=== PATIENT | female | born 1965 | race Caucasian/White ===

== ENCOUNTER → 2023-04-01 13:27 | Outpatient (REF) | payer MEDICARE, OTHER, SELFPAY | LOC: WOUND 13:27 | PROVIDERS: ATTENDING PHYSICIAN Surgery; REFERRING PHYSICIAN Internal Medicine Geriatric Medicine | DX: L97.114 Non-pressure chronic ulcer of right thigh with necrosis of bone (principal); M86.351 Chronic multifocal osteomyelitis, right femur | CPT/HCPCS: 99213 ==

== ENCOUNTER 2023-12-16 14:08 | Inpatient (IN) | payer MEDICARE, OTHER, SELFPAY ==
[2023-12-16] VITALS (11 sets, daily range): BP systolic 91–129; BP diastolic 60–71; BMI 19.2
--- NOTE | 2023-12-16 09:29 | ED.GENMED ---
History of Present Illness
<Ryanne Velasquez PA-C - Last Filed: 12/16/23 17:13>
General
Chief Complaint: Weakness
Source: patient
Exam Limitations: none
Time Seen by Provider: 12/16/23 09:28
Nursing documentation reviewed up to this point in time: agreed with
History of Present Illness
History of Present Illness:
This is a 58 y/o female with a PMH of L hemisphere aneurysm with right hemiparesis, epilepsey, chronic tobacco use, hypothyroidism presenting to the emergency department today with concerns of generalized weakness and low pulse ox. Patient resides
at [facility] for traumatic brain injury. EMS reports that facility sent her to the emergency department because her pulse ox was 90% and she appeared weaker. Patient herself states that she is here because staff sent her
here and that she personally does not feel sick. She denies shortness of breath, chest pain, dizziness, lightheadedness, fevers, chills, abdominal pain, nausea, headaches, vomiting. Apparently, patient was recently treated for a respiratory
infection but there is no evidence of this on her paper records. Patient states that she has a chronic cough because of tobacco use. Patient denies a change in color/volume of sputum.
Past History
<Ryanne Velasquez PA-C - Last Filed: 12/16/23 17:13>
Past History
ED Past Medical History: CAD, HTN, Seizures, Hypothyroidism, Psychiatric and Other (TBI)
Social History
Tobacco: Non-smoker
Alcohol: None
Personal: Single
Living: [facility]
Family History
Family History: Unable to obtain
Review of Systems
<PALOMO Torres Last Filed: 12/16/23 17:13>
Review of Systems
All Other Systems: ROS reviewed and negative except as documented in HPI and ROS
Phy Exam
<PALOMO Torres Last Filed: 12/16/23 17:13>
Physical Exam
Physical Exam:
General: Patient is well appearing and in no acute distress; non-toxic
Skin: Warm and dry, no rashes or lesions
Head: Normocephalic, atraumatic
Eyes: Sclera non-icteric. EOMs intact. PERRLA.
Cardiac: Regular rate and rhythm, no murmurs
Peripheral Vascular: No lower extremity swelling or edema
Pulm: Normal respiratory effort, scattered rhonchi heard on exam
Abdomen: No abdominal tenderness to palpation
Neuro: CN II-XII intact, chronic right sided weakness
Psychiatric: Appropriate mood and affect, insight somewhat limited
Course
<Ryanne Velasquez PA-C - Last Filed: 12/16/23 17:13>
Orders/Labs/Results
Orders:
Orders
12/16/23 09:48
CR Chest - 2 Views Urgent
Comment:
Reason For Exam: shortness of breath
12/16/23 09:51
Electrocardiogram (*1) Urgent
Reason for Study: Shortness of Breath
EKG- Treatment ONCE
12/16/23 Lunch
Regular
At Your Request: Full Participation
Does patient need a safe tray?: No
12/16/23 10:14
COVID-19 Antigen Urgent
Source: Nasal Swab
Urinalysis Reflex To Culture Urgent
Date Specimen was Collected: 12/16/23
Time Specimen was Collected: 09:57
12/16/23 10:20
0.9% Sodium Chloride 500 ml [Nss] 500 ml IV BOLUS
12/16/23 11:00
Complete Blood Count/With Diff Urgent
Comprehensive Metabolic Panel Urgent
Troponin I Urgent
12/16/23 12:29
0.9% Sodium Chloride 1000 ml [Nss] 1,000 ml IV BOLUS
12/16/23 12:32
Piperacillin/Tazo 4.5 Gram [Zosyn] 4.5 gram in 100 ml IV NOW
Vancomycin 1 Gram/200 ml [Vancocin] 1 gram in 200 ml IV NOW
12/16/23 13:00
Nicotine [Nicoderm Transdermal] 7 mg TRANSDERM DAILY
12/16/23 13:46
Admit/Transfer Patient As Directed
Co-Sign Provider:
Level of Care: Inpatient admission
Assign to:: Medical/Surgical
Physician / Group: Yee Portillo anaists
Diagnosis: Pneumonia, early sepsis
Reason for Hospitalization: Pneumonia, early sepsis
Expected length of stay greater than two midnights?: Yes
ELOS- Estimated Length of Stay in days: 3
I certify the patient meets the requirements for IP care: Yes
12/16/23 13:49
Code Status As Directed
Resuscitation Status: Full Code
12/16/23 14:50
Acetaminophen [Tylenol] 650 mg PO Q4HPRN PRN
Bisacodyl [Dulcolax] 10 mg RECTAL [id number] PRN
Diphenhydramine [Benadryl] 50 mg PO HSPRN PRN
Docusate W/Senna [Senokot-S] 1 tablet PO BIDPRN PRN
Ipratropium/Albuterol Sulfate [Duoneb] 3 ml INH R Q4HPRN PRN
Ondansetron Injectable [Zofran] 4 mg IV Q6HPRN PRN
Polyethylene Glycol Powder [Miralax] 17 grams PO DAILYPRN PRN
12/16/23 14:50
Respiratory Culture/Gram Stain Routine
RAYMOND Source: Sputum
Specimen Description:
Activity As Directed
Activity Level: As Tolerated
Vital Signs As Directed
Frequency: Per unit guidelines
Acapella [Rx Pep / Acapela] [RESP] Routine
Chest PT [Rx Chest Pt] [RESP] Routine
Rx Incentive Spirometry [RESP] Routine
Frequency: q1h while awake
Ot Eval And Treat Routine
Pt Eval And Treat Routine
Activity Level: As Tolerated
Speech Therapy Eval & Treat Routine
DX Deep Vein Thrombosis Video Routine
12/16/23 16:00
Lorazepam [Ativan] 0.5 mg PO TID
Nystatin Cream [Mycostatin Cream] 1 applic TOPICAL TID
12/16/23 16:38
Blood Culture Routine
RAYMOND Source: Blood/Venous
Specimen Description:
Blood Culture Routine
RAYMOND Source: Blood/Venous
Specimen Description:
Comment: 30 mins after first set
12/16/23 17:00
Lamotrigine [Lamictal] 300 mg PO BID@0800,1700
12/16/23 18:00
Cefepime HCl [Maxipime] 1,000 mg IV Q8H
Enoxaparin Sodium [Lovenox] 40 mg SC QPM
12/16/23 20:00
Bacitracin/Polymyxin B [Polysporin Ointment] 1 applic TOPICAL BID
Baclofen [Lioresal] 5 mg PO BID
Famotidine [Pepcid] 20 mg PO BID
Guaifenesin [Mucinex] 1,200 mg PO Q12
Lacosamide [Vimpat] 200 mg PO BID
Phenytoin [Dilantin] 100 mg PO BID
Phenytoin [Dilantin] 50 mg PO BID
Zinc Oxide 20% [Zinc Oxide Ointment] 1 applic TOPICAL BID
12/16/23 22:00
Aripiprazole [Abilify] 7.5 mg PO HS
Gabapentin [Neurontin] 900 mg PO HS
Mirtazapine [Remeron] 15 mg PO HS
Rosuvastatin Calcium [Crestor] 20 mg PO HS
Sennosides [Senokot] 8.6 mg PO HS
Tramadol HCl [Ultram] 50 mg PO HS
12/17/23 06:00
Basic Metabolic Panel IN AM
Complete Blood Count/With Diff IN AM
Levothyroxine [Synthroid] 25 mcg PO DAILY@0600
12/17/23 08:00
Ascorbic Acid [Vitamin C] 500 mg PO DAILY
Aspirin Chewable [Low Strength Aspirin] 81 mg PO DAILY
Cyanocobalamin [Vitamin B-12] 1,000 mcg PO DAILY
FOLic ACID [Folvite] 1 mg PO DAILY
Gabapentin [Neurontin] 600 mg PO DAILY
Abnormal Lab Results
12/16/23
11:00
WBC 13.5 H 10^3/uL
(4.8-10.8)
Abs Immat Gran (auto) 0.1 H 10^3/uL
(0-0.05)
Absolute Neuts (auto) 11.6 H 10^3/uL
(1.4-6.5)
Neutrophils % 86.1 H %
(42.2-75.2)
Lymphocytes % 8.5 L %
(20.5-51.1)
Chloride 109 H mmol/L
(98-107)
Creatinine 0.5 L mg/dL
(0.6-1.0)
Glucose 128 H mg/dl
(70-99)
AST 12 L U/L
(14-36)
12/16/23 11:00
12/16/23 11:00
Vital Signs
Initial and Last Documented VS:
Initial Vital Signs
BP
91/64
12/16/23 09:26
Last Documented Vital Signs
Temp Pulse Resp BP Pulse Ox
98.3 F 73 17 112/70 97
12/16/23 15:30 12/16/23 15:30 12/16/23 15:30 12/16/23 15:30 12/16/23 15:30
<Blank Sinclair MD - Last Filed: 12/16/23 10:51>
Orders/Labs/Results
Orders:
Orders
12/16/23 09:48
CR Chest - 2 Views Urgent
Comment:
Reason For Exam: shortness of breath
12/16/23 09:51
Electrocardiogram (*1) Urgent
Reason for Study: Shortness of Breath
EKG- Treatment ONCE
12/16/23 Lunch
Regular
At Your Request: Full Participation
Does patient need a safe tray?: No
12/16/23 10:14
COVID-19 Antigen Urgent
Source: Nasal Swab
Urinalysis Reflex To Culture Urgent
Date Specimen was Collected: 12/16/23
Time Specimen was Collected: 09:57
12/16/23 10:20
0.9% Sodium Chloride 500 ml [Nss] 500 ml IV BOLUS
12/16/23 11:00
Complete Blood Count/With Diff Urgent
Comprehensive Metabolic Panel Urgent
Troponin I Urgent
12/16/23 12:29
0.9% Sodium Chloride 1000 ml [Nss] 1,000 ml IV BOLUS
12/16/23 12:32
Piperacillin/Tazo 4.5 Gram [Zosyn] 4.5 gram in 100 ml IV NOW
Vancomycin 1 Gram/200 ml [Vancocin] 1 gram in 200 ml IV NOW
12/16/23 13:00
Nicotine [Nicoderm Transdermal] 7 mg TRANSDERM DAILY
12/16/23 13:46
Admit/Transfer Patient As Directed
Co-Sign Provider:
Level of Care: Inpatient admission
Assign to:: Medical/Surgical
Physician / Group: Yee Portillo - hospitalists
Diagnosis: Pneumonia, early sepsis
Reason for Hospitalization: Pneumonia, early sepsis
Expected length of stay greater than two midnights?: Yes
ELOS- Estimated Length of Stay in days: 3
I certify the patient meets the requirements for IP care: Yes
12/16/23 13:49
Code Status As Directed
Resuscitation Status: Full Code
12/16/23 14:50
Acetaminophen [Tylenol] 650 mg PO Q4HPRN PRN
Bisacodyl [Dulcolax] 10 mg RECTAL [id number] PRN
Diphenhydramine [Benadryl] 50 mg PO HSPRN PRN
Docusate W/Senna [Senokot-S] 1 tablet PO BIDPRN PRN
Ipratropium/Albuterol Sulfate [Duoneb] 3 ml INH R Q4HPRN PRN
Ondansetron Injectable [Zofran] 4 mg IV Q6HPRN PRN
Polyethylene Glycol Powder [Miralax] 17 grams PO DAILYPRN PRN
12/16/23 14:50
Respiratory Culture/Gram Stain Routine
RAYMOND Source: Sputum
Specimen Description:
Activity As Directed
Activity Level: As Tolerated
Vital Signs As Directed
Frequency: Per unit guidelines
Acapella [Rx Pep / Acapela] [RESP] Routine
Chest PT [Rx Chest Pt] [RESP] Routine
Rx Incentive Spirometry [RESP] Routine
Frequency: q1h while awake
Ot Eval And Treat Routine
Pt Eval And Treat Routine
Activity Level: As Tolerated
Speech Therapy Eval & Treat Routine
DX Deep Vein Thrombosis Video Routine
12/16/23 16:00
Lorazepam [Ativan] 0.5 mg PO TID
Nystatin Cream [Mycostatin Cream] 1 applic TOPICAL TID
12/16/23 16:38
Blood Culture Routine
RAYMOND Source: Blood/Venous
Specimen Description:
Blood Culture Routine
RAYMOND Source: Blood/Venous
Specimen Description:
Comment: 30 mins after first set
12/16/23 17:00
Lamotrigine [Lamictal] 300 mg PO BID@0800,1700
12/16/23 18:00
Cefepime HCl [Maxipime] 1,000 mg IV Q8H
Enoxaparin Sodium [Lovenox] 40 mg SC QPM
12/16/23 20:00
Bacitracin/Polymyxin B [Polysporin Ointment] 1 applic TOPICAL BID
Baclofen [Lioresal] 5 mg PO BID
Famotidine [Pepcid] 20 mg PO BID
Guaifenesin [Mucinex] 1,200 mg PO Q12
Lacosamide [Vimpat] 200 mg PO BID
Phenytoin [Dilantin] 100 mg PO BID
Phenytoin [Dilantin] 50 mg PO BID
Zinc Oxide 20% [Zinc Oxide Ointment] 1 applic TOPICAL BID
12/16/23 22:00
Aripiprazole [Abilify] 7.5 mg PO HS
Gabapentin [Neurontin] 900 mg PO HS
Mirtazapine [Remeron] 15 mg PO HS
Rosuvastatin Calcium [Crestor] 20 mg PO HS
Sennosides [Senokot] 8.6 mg PO HS
Tramadol HCl [Ultram] 50 mg PO HS
12/17/23 06:00
Basic Metabolic Panel IN AM
Complete Blood Count/With Diff IN AM
Levothyroxine [Synthroid] 25 mcg PO DAILY@0600
12/17/23 08:00
Ascorbic Acid [Vitamin C] 500 mg PO DAILY
Aspirin Chewable [Low Strength Aspirin] 81 mg PO DAILY
Cyanocobalamin [Vitamin B-12] 1,000 mcg PO DAILY
FOLic ACID [Folvite] 1 mg PO DAILY
Gabapentin [Neurontin] 600 mg PO DAILY
Abnormal Lab Results
12/16/23
11:00
WBC 13.5 H 10^3/uL
(4.8-10.8)
Abs Immat Gran (auto) 0.1 H 10^3/uL
(0-0.05)
Absolute Neuts (auto) 11.6 H 10^3/uL
(1.4-6.5)
Neutrophils % 86.1 H %
(42.2-75.2)
Lymphocytes % 8.5 L %
(20.5-51.1)
Chloride 109 H mmol/L
(98-107)
Creatinine 0.5 L mg/dL
(0.6-1.0)
Glucose 128 H mg/dl
(70-99)
AST 12 L U/L
(14-36)
12/16/23 11:00
12/16/23 11:00
Vital Signs
Initial and Last Documented VS:
Initial Vital Signs
BP
91/64
12/16/23 09:26
Last Documented Vital Signs
Temp Pulse Resp BP Pulse Ox
98.3 F 73 17 112/70 97
12/16/23 15:30 12/16/23 15:30 12/16/23 15:30 12/16/23 15:30 12/16/23 15:30
Billlt;Ryanne Velasquez PA-C - Last Filed: 12/16/23 17:13>
MDM/Problems Addressed
Differential Diagnosis Includes:
ddx include pneumonia, COVID-19 infection, urinary tract infection, ACS
MDM/Problems Addressed:
Weakness, low pulse ox:
This is a 58 y/o female with a PMH of L hemisphere aneurysm with right hemiparesis, epilepsey, chronic tobacco use, hypothyroidism presenting to the emergency department today with concerns of generalized weakness and low pulse ox. Patient resides
at [facility] for traumatic brain injury. EMS reports that facility sent her to the emergency department because her pulse ox was 90% and she appeared weaker. Patient herself denies any symptoms, has no complaints. On exam
she appears well but fatigued. VSS, does have scattered rhonchi. Her chest x-ray demonstrates a posterior pneumonia. Patient also has soft blood pressure, elevated white blood cell count. Considering these factors and considering patient comes
from a long-term care facility, will admit for IV antibiotics for pneumonia. Patient supposedly warms from her facility it says that she is a [facility], however when speaking to family, they state that this is a mistake.
Chronic conditions affecting care:
right hemiparesis, epilepsey, chronic tobacco use, hypothyroidism
Acute Exacerbation and/or Progression of Chronic Illness:
right hemiparesis, epilepsey, chronic tobacco use, hypothyroidism
<Ryanne Velasquez PA-C - Last Filed: 12/16/23 17:13>
*Pulse Oximetry
Patient hypoxic: no
*EKG
Interpreted by ED Provider?: Yes
EKG Intrepretation Date: 12/16/23
Interpretation: normal
Comparison EKG: changes noted
Heart Rate: 85
Rate: normal
Rhythm: sinus
[place]: normal axis
Interval: normal interval and normal QT interval
QRS Pattern: normal QRS
Ischemia: non-specific ST changes
*Extruder Operator Interpretation
Rate: normal
Interpretation: normal
Heart Rate: 80
Rhythm: sinus
*Critical Care Note
Total Time (30-74mins, 75-104mins- exclusive of procedures): Not Applicable
Data Reviewed
Review of Other/Old Records Reveals: Records (reviewed ER physician documentation from 01/22/23, 01/06/23) and Discharge Summary (no discharge summaries in [facility] to review)
Source: patient and records
<Ryanne Velasquez PA-C - Last Filed: 12/16/23 17:13>
Patient Management
Escalation/DeEscalation of care consider admission/obs:
Admission indicated. Case reviewed with Dr. Sinclair.
<Ryanne Velasquez PA-C - Last Filed: 12/16/23 17:13>
Update Note
Update Note:
10:00 am-- Attempted to call patient's facility multiple times with no response, left messages
ED Attending Note
<Ryanne Velasquez PA-C - Last Filed: 12/16/23 17:13>
-
Portions of this chart may have been created with voice recognition software.� Occasional wrong word or��sound alike� substitutions may have occurred due to the inherent limitations of voice recognition software.
<Blank Sinclair MD - Last Filed: 12/16/23 10:51>
ED Attending Note
Patient seen and examined by attending physician: Yes
I performed the substantive portion of visit, reviewed & personally made and approve the management plan that is documented in note by myself or JULIAN.: Yes
ED Attending Note:
Patient appears awake, alert and nontoxic. Lungs sound clear. Heart sounds regular. Awaiting lab work
Discharge Plan
Departure
Patient Disposition: Admit
Date of Disposition: 12/16/23
Time of Disposition: 12:35
Admit to: Med/Surg
Presentation/result/management discussed w/ accepting MD/DO: Hospitalist
Patient with high blood pressure during this ER visit?: No
Condition: Fair
Discharge Problem:
Left lower lobe pneumonia
Interventions
Interventions:
*Risk Screen - Suicide Last Done: 12/16/23 15:32
*Neglect/Abuse Screening Last Done: 12/16/23 09:36
ED- Fall Risk Assessment Last Done: 12/16/23 14:05
*ED COVID-19 Vaccine History Last Done: 12/16/23 15:32
*Nursing Disposition Last Done: 12/16/23 14:44
ED- Cardiac Assessment Last Done: 12/16/23 09:41
ED- Neurological Assessment Last Done: 12/16/23 09:41
ED- Pulmonary Assessment Last Done: 12/16/23 09:42
Discharge Date and Time
Discharge Date/Time: 12/16/23 14:44
[2023-12-16 10:23] LABS: Urine Albumin Trace (Neg - Trace); Urine Bilirubin Negative (Negative); Urine Character Clear (Clear); Urine Color Yellow; Urine Glucose Negative (Negative); Urine Ketone Negative (Negative); Urine Leukocyte Negative (Negative); Urine Nitrite Negative (Negative); Urine Occult Blood Negative (Negative); Urine Specific Gravity 1.015 (<1.030); Urine Urobilinogen Negative (Neg - 1+)
[2023-12-16 10:39] LABS: COVID-19 Antigen Negative (Negative)
[2023-12-16] MEDS: NSS 500 IV (11:03)
[2023-12-16 11:11] LABS: % Basophils 0.2 % (0-2); % Eosinophils 0.3 % (0-6); % Immature Granulocytes 0.4 % (0-0.5); % Lymphocytes 8.5 % (20.5-51.1); % Monocytes 4.5 % (1.7-9.3); % Neutrophils 86.1 % (42.2-75.2); Absolute Immature Granulocytes 0.1 10^3/uL (0-0.05); Absolute Lymphocytes 1.2 10^3/uL (1.2-3.4); Absolute Monocytes 0.6 10^3/uL (0.1-0.6); Absolute Neutrophils 11.6 10^3/uL (1.4-6.5); Hematocrit 37.7 % (37.0-47.0); Hemoglobin 12.9 g/dL (12.0-16.0); Mean Corp Hgb Conc. 34.2 g/dL (33.0-37.0); Mean Corpuscular Hgb 30.6 pg (27.0-31.0); Mean Corpuscular Volume 89.5 fL (81.0-99.0); Mean Platelet Volume 9.3 fL (7.4-10.4); Nucleated Red Blood Cells % 0 %; Platelet Count 217 10^3/uL (130-400); Red Blood Cell Count 4.21 10^6/uL (4.20-5.40); Red Cell Dist. Width 12.6 % (11.5-14.5); White Blood Cell Count 13.5 10^3/uL (4.8-10.8)
[2023-12-16 11:28] LABS: ALT (SGPT) < 10 U/L (0-35); AST (SGOT) 12 U/L (14-36); Albumin 4.2 g/dl (3.5-5.0); Alkaline Phosphatase 97 U/L (38-126); Blood Urea Nitrogen 10 mg/dl (7-17); Calcium 9.8 mg/dl (8.4-10.2); Carbon Dioxide 28 mmol/L (22-30); Chloride 109 mmol/L (98-107); Estimated Creatinine Clearance 94 ml/min; Glucose 128 mg/dl (70-99); Potassium 3.7 mmol/L (3.5-5.1); Sodium 143 mmol/L (135-145); Total Bilirubin 0.3 mg/dl (0.2-1.3); Total Protein 6.7 g/dl (6.3-8.2); eGFR > 60.00
[2023-12-16 11:39] LABS: Troponin I < 0.012 ng/ml
[2023-12-16] MEDS: ZOSYN 100 IV (13:00)
[2023-12-16] MEDS: NSS 1000 IV (13:01)
[2023-12-16] MEDS: NICODERM TRANSDERMAL 7 MG TRANSDERM (13:12)
--- NOTE | 2023-12-16 13:35 | HPS.HSE ---
Family Physician
-
Family Physician: Fredrick Norman
Chief Complaint
-
weakness
History of Present Illness
58 y/o F hx of TBI, hx of hypothyroidism, seizures, HTN, CAD, L hemisphere aneurysm with right hemiparesis, chronic tobacco abuse who lives at [facility]. She was sent today from facility with concern of generalized
weakness. Also noted to have low pulse ox. They noted cough, congestion breath sounds. No fever/chills, no SOB or chest pain. NO other complaints. Per reports, recently treated for respiratory infection but no records to corroborate.
Medical History
Past Medical History
Past Medical History: Reports Other (hx of TBI, hx of hypothyroidism, seizures, HTN, CAD, L hemisphere aneurysm with right hemiparesis, chronic tobacco abuse)
Past Surgical History: Reports Brain (brain aneurism repairy surgery 1984)
Social History
Tobacco: Non-smoker
Alcohol: None
Drug: None
Personal: Single
Living: [facility]
Family History
Family History: Not pertinent
Allergies / Home Medications
Allergies reflects when Allergies were last updated in [employer].
Home Medications with original date entered in [employer]
Allergy/Medication List:
Allergies
Allergy/AdvReac Type Severity Reaction Status Date / Time
No Known Allergies Allergy Verified 12/13/22 12:05
Home Medications
acetaminophen 325 mg tablet 650 mg PO Q4HPRN PRN pain or fever > 100.5 09/28/12
aspirin 81 mg chewable tablet 81 mg PO DAILY CAD 09/28/12
baclofen 10 mg tablet 5 mg PO BID Spasticity 09/28/12
diphenhydramine HCl 25 mg capsule (Banophen) 2 capsules PO HSPRN PRN anxiety 09/28/12
famotidine 20 mg tablet 20 mg PO BID Gastrointestinal Issue 09/28/12
lamotrigine 150 mg tablet 300 mg PO BID@, Seizures 09/28/12
loperamide 2 mg capsule 2 mg PO Q6HPRN PRN after each loose stool 09/28/12
amoxicillin 875 mg-potassium clavulanate 125 mg tablet 1 tab PO BID Osteomyelitis 12/16/23
aripiprazole 15 mg tablet 7.5 mg PO HS Mood disorder 12/16/23
ascorbic acid (vitamin C) 500 mg tablet 500 mg PO DAILY Supplement 12/16/23
bacitracin 500 unit/gram topical packet 1 applic topical BID to RLE 12/16/23
cyanocobalamin (vitamin B-12) 1,000 mcg tablet 1,000 mcg PO DAILY Supplement 12/16/23
folic acid 1 mg tablet 1 mg PO DAILY Supplement 12/16/23
gabapentin 300 mg capsule 600 mg PO DAILY Neurological Condition 12/16/23
gabapentin 300 mg capsule 900 mg PO HS Neurological Condition 12/16/23
lacosamide 200 mg tablet 200 mg PO BID Seizures 12/16/23
levothyroxine 25 mcg tablet 25 mcg PO DAILY@0600 Thyroid 12/16/23
lorazepam 0.5 mg tablet 0.5 mg PO TID Mental Health/Anxiety 12/16/23
midazolam 5 mg/spray (0.1 mL) nasal spray (Nayzilam) 5 mg intranasal [id number] PRN prolonged seizure 12/16/23
mirtazapine 15 mg tablet 15 mg PO HS Mental Health/Anxiety 12/16/23
nystatin 100,000 unit/gram topical cream 1 applic topical TID to groin rash 12/16/23
ondansetron 4 mg disintegrating tablet 4 mg PO Q4HPRN PRN nausea/vomiting 12/16/23
phenytoin 50 mg chewable tablet 50 mg PO BID Seizures 12/16/23
phenytoin sodium extended 100 mg capsule 100 mg PO BID Seizures 12/16/23
rosuvastatin 20 mg tablet 20 mg PO HS High Cholesterol 12/16/23
sennosides 8.6 mg tablet (senna) 8.6 mg PO HS Constipation 12/16/23
tramadol 50 mg tablet 50 mg PO HS Pain 12/16/23
zinc oxide 20 % topical ointment 1 applic topical BID to jes wound 12/16/23
ziprasidone mesylate 20 mg IM [id number] PRN agitation 12/16/23
Review of Systems
-
A 12 point ROS was completed and negative except as noted: Yes
Physical Exam
Vital Signs
Vital Signs
Temp Pulse Resp BP Pulse Ox
98.4 F 80 16 91/69 94
12/16/23 09:32 12/16/23 11:45 12/16/23 11:45 12/16/23 11:44 12/16/23 09:42
Physical Exam
General: Appears Chronically Ill
HEENT: NormoCephalic and Anicteric
Respiratory: Rhonchi; No Wheezes or Rales
Cardiac: S1/S2 and Regular Rhythm
GI: Soft
Neuro: AO x 3
Psych: Calm
Laboratory Results
-
12/16/23 11:00
12/16/23 11:00
Laboratory Results
Total Bilirubin 0.3 mg/dl (0.2-1.3) 12/16/23 11:00
AST 12 U/L (14-36) L 12/16/23 11:00
ALT < 10 U/L (0-35) 12/16/23 11:00
Alkaline Phosphatase 97 U/L (38-126) 12/16/23 11:00
Troponin I < 0.012 ng/ml 12/16/23 11:00
Data Reviewed
-
Diagnostic Radiology: Report Reviewed by me
Lab Data: Labs Reviewed by me
Impression/Plan
-
Assessment:
Mild posterior left lower lobe pneumonia
- treat as HAP as patient lives in facility
- Vanco/Cefepime
- check MRSA and sputum cultures
- no blood cultures drawn by ER, will draw here with concern of develop sepsis if remains hypotensive
- prn nebs
- mucolytics
- chest PT/Acapella/IS
L hemisphere aneurysm with right hemiparesis
hx of TBI
hx of seizures
- continue Abilify
- continue Baclofen + Tramadol for spasticity and chronic pain
- continue Gabapentin
- continue Lacosamide + phenytoin
- continue Lamotrigine
- continue Ativan TID
- continue Mirtazapine
hx of hypothyroidism
- continue replacement
Essential HTN
CAD
- continue ASA/HLD
chronic tobacco abuse
- Nicotine patch
DVT ppx: Lovenox
Code: Full
[2023-12-16] MEDS: VANCOCIN 200 IV (13:45)
--- NOTE | 2023-12-16 15:13 | PHA.VAN.IN ---
Assessment
- Assessment
Renal Function: Appears similar to baseline
Concomitant Antimicrobials: CEFEPIME
AUC Dosing Plan
- Dosing Variables
Dosing Weight (kg): 57
Dosing CrCl (ml/min): 94
Vd coefficient (L/kg): 0.7
- Empiric Dosing
Initial / Loading Dose: VANCO 1000MG X1
Maintenance Regimen: VANCO 750MG Q12H
Estimated AUC (mcg*h/mL): 475
Estimated Peak (mcg*h/mL): 29.9
Estimated Trough (mcg/ml): 12.1
Estimated Half Life (H): 8.4
- Monitoring
No levels ordered at this time: CONSIDER LEVEL PRIOR TO 4TH MAINTENANCE DOSE
MRSA Screen: Ordered per protocol
Pharmacokinetics Vancomycin I
- -
Patient Age: 58
Patient Sex: Female
Vancomycin Day #: 1
Indication: PULM
Requesting Provider: DR. BROWNLEE
Height / Weight:
Height 5 ft 8 in
Actual Weight 57.3 kg
Pertinent Past Medical History: TBI, hx of hypothyroidism, seizures, HTN, CAD, R hemiparesis
- Vital Signs / Lab Results
Temp Pulse Resp BP Pulse Ox
98.4 F 76 18 98/64 94
12/16/23 09:32 12/16/23 14:30 12/16/23 14:30 12/16/23 14:00 12/16/23 09:42
Lab Results - Hematology
12/16/23
11:00
WBC 13.5 H
Lab Results - Chemistry
12/16/23
11:00
BUN 10
Creatinine 0.5 L
Estimated Creat Clear 94
Albumin 4.2
Lab Results - Urine
12/16/23
10:14
Urine Nitrite (Reflex) Negative
Leukocyte Esterase Rfl Negative
[2023-12-16] MEDS: MAXIPIME 1000 MG IV (16:54)
[2023-12-16] MEDS: MYCOSTATIN CREAM 1 APPLIC TOPICAL ×2 (16:54→21:52)
[2023-12-16] MEDS: LOVENOX 40 MG SC (16:54)
[2023-12-16] MEDS: ATIVAN 0.5 MG PO ×2 (16:54→21:51)
[2023-12-16] MEDS: LAMICTAL 300 MG PO (16:54)
[2023-12-16] MEDS: VANCOCIN 150 IV (18:09)
--- NOTE | 2023-12-16 18:18 | PTCARENOTE ---
PT admission completed. PT came from ER and transferred to bed. PT awake alert x3 with odd affect. She denies being suicidal or actively depressed; however, she does say she is chronically depressed. During suicide admission screen pt admitted to
trying to jump out window. She denies being suicidal however she has repeatedly stated she is anxious to today. when i inquire on this, Pt stated she is going to tonight and cannot wait for it. She admits she hates life. about an hour after
on the floor i was giving her her antibiotic, she starting laughing out of no where, i asked her what was so funny. She stated,' my stomach growled, this will be the last time im ever hungry, i am going to tonight.' Again, i asked if she felt
depressed she denies any thing new only that she hates life and she said this is how she is always nothing new. I did let the doctor know, and he will order a psych consult in am. In the meantime, I put her on a video monitoring and provided her
with a safe tray. Pt sleeps with blanket over head.
[2023-12-16] MEDS: LIORESAL 5 MG PO (20:26)
[2023-12-16] MEDS: DILANTIN 100 MG PO (20:26)
[2023-12-16] MEDS: POLYSPORIN OINTMENT 1 APPLIC TOPICAL (20:27)
[2023-12-16] MEDS: VIMPAT 200 MG PO (20:27)
[2023-12-16] MEDS: PEPCID 20 MG PO (20:27)
[2023-12-16] MEDS: ZINC OXIDE OINTMENT 1 APPLIC TOPICAL (20:27)
[2023-12-16] MEDS: MUCINEX 1200 MG PO (20:27)
[2023-12-16] MEDS: ABILIFY 7.5 MG PO (21:51)
[2023-12-16] MEDS: DILANTIN 50 MG PO (21:51)
[2023-12-16] MEDS: CRESTOR 20 MG PO (21:51)
[2023-12-16] MEDS: NEURONTIN 900 MG PO (21:51)
[2023-12-16] MEDS: REMERON 15 MG PO (21:52)
[2023-12-16] MEDS: ULTRAM 50 MG PO (21:52)
[2023-12-16] MEDS: SENOKOT 8.6 MG PO (21:52)
[2023-12-17] MEDS: MAXIPIME 1000 MG IV ×3 (02:00→17:06)
[2023-12-17] MEDS: STERILE WATER FOR INJECTION 10 ML IV ×3 (02:01→17:06)
[2023-12-17] MEDS: SYNTHROID 25 MCG PO (05:36)
[2023-12-17] MEDS: VANCOCIN 150 IV ×2 (05:36→18:11)
[2023-12-17 06:21] LABS: % Basophils 0.1 % (0-2); % Eosinophils 2.7 % (0-6); % Immature Granulocytes 0.1 % (0-0.5); % Lymphocytes 19.9 % (20.5-51.1); % Monocytes 5.8 % (1.7-9.3); % Neutrophils 71.4 % (42.2-75.2); Absolute Eosinophils 0.2 10^3/uL (0-0.7); Absolute Lymphocytes 1.3 10^3/uL (1.2-3.4); Absolute Monocytes 0.4 10^3/uL (0.1-0.6); Absolute Neutrophils 4.8 10^3/uL (1.4-6.5); Hematocrit 37.8 % (37.0-47.0); Hemoglobin 12.2 g/dL (12.0-16.0); Mean Corp Hgb Conc. 32.3 g/dL (33.0-37.0); Mean Corpuscular Hgb 30.2 pg (27.0-31.0); Mean Corpuscular Volume 93.6 fL (81.0-99.0); Mean Platelet Volume 10.1 fL (7.4-10.4); Nucleated Red Blood Cells % 0 %; Platelet Count 183 10^3/uL (130-400); Red Blood Cell Count 4.04 10^6/uL (4.20-5.40); Red Cell Dist. Width 12.6 % (11.5-14.5); White Blood Cell Count 6.8 10^3/uL (4.8-10.8)
[2023-12-17 06:25] LABS: Blood Urea Nitrogen 8 mg/dl (7-17); Calcium 9.5 mg/dl (8.4-10.2); Carbon Dioxide 23 mmol/L (22-30); Chloride 112 mmol/L (98-107); Estimated Creatinine Clearance 94 ml/min; Glucose 84 mg/dl (70-99); Sodium 141 mmol/L (135-145); eGFR > 60.00
[2023-12-17 07:55] VITALS: BP 99/56
[2023-12-17] MEDS: LAMICTAL 300 MG PO ×2 (09:08→16:37)
[2023-12-17] MEDS: MUCINEX 1200 MG PO ×2 (09:09→20:18)
[2023-12-17] MEDS: DILANTIN 50 MG PO ×2 (09:10→20:17)
[2023-12-17] MEDS: LOW STRENGTH ASPIRIN 81 MG PO (09:10)
[2023-12-17] MEDS: ATIVAN 0.5 MG PO ×3 (09:10→21:28)
[2023-12-17] MEDS: VITAMIN C 500 MG PO (09:10)
[2023-12-17] MEDS: VIMPAT 200 MG PO ×2 (09:10→20:19)
[2023-12-17] MEDS: DILANTIN 100 MG PO ×2 (09:11→20:17)
[2023-12-17] MEDS: PEPCID 20 MG PO ×2 (09:11→20:18)
[2023-12-17] MEDS: VITAMIN B-12 1000 MCG PO (09:11)
[2023-12-17] MEDS: LIORESAL 5 MG PO ×2 (09:11→20:17)
[2023-12-17] MEDS: FOLVITE 1 MG PO (09:12)
[2023-12-17] MEDS: MYCOSTATIN CREAM 1 APPLIC TOPICAL ×3 (09:12→21:28)
[2023-12-17] MEDS: NEURONTIN 600 MG PO (09:12)
[2023-12-17] MEDS: NICODERM TRANSDERMAL 7 MG TRANSDERM (09:13)
[2023-12-17] MEDS: POLYSPORIN OINTMENT 1 APPLIC TOPICAL ×2 (09:14→20:18)
[2023-12-17] MEDS: ZINC OXIDE OINTMENT 1 APPLIC TOPICAL ×2 (09:17→20:19)
--- NOTE | 2023-12-17 09:43 | PHA.VAN.FU ---
Vancomycin Assessment / Plan
- Assessment
Renal Function: Stable
WBC's are: WNL
In the past 24 hrs, patient has been: Afebrile
Concomitant Antimicrobials: cefepime
- Dosing Plan
Continue: vanc 750 mg q12h
- Monitoring Plan
No level(s) ordered at this time: consider in the upcoming days
- Follow Up
Pharmacy will continue to follow.
Vancomycin Follow UP
- -
Patient Age: 58
Patient Sex: Female
Vancomycin Day #: 2
Indication: Pulmonary/Respiratory
Requesting Provider: DR. BROWNLEE
Height / Weight:
Height 5 ft 8 in
Actual Weight 57.3 kg
Pertinent Past Medical History: TBI, hx of hypothyroidism, seizures, HTN, CAD, R hemiparesis
- Vital Signs / Lab Results
Temp Pulse Resp BP Pulse Ox
98.0 F 65 18 99/56 94
12/17/23 07:55 12/17/23 07:55 12/17/23 07:55 12/17/23 07:55 12/17/23 07:55
Lab Results - Hematology
12/16/23 12/17/23
11:00 05:34
WBC 13.5 H 6.8
Lab Results - Chemistry
12/16/23 12/17/23
11:00 05:34
BUN 10 8
Creatinine 0.5 L 0.4 L
Estimated Creat Clear 94 94
Albumin 4.2
Lab Results - Urine
12/16/23
10:14
Urine Nitrite (Reflex) Negative
Leukocyte Esterase Rfl Negative
Microbiology Results
12/16/23 16:24 Nasal Screen MRSA (PCR) - Final
Nose MRSA not detected - performed by PCR methodology.
[2023-12-17 12:46] VITALS: BP 119/64; PULSE 71; O2SAT 93
[2023-12-17 12:58] VITALS: BP 119/64; PULSE 71; O2SAT 93
--- NOTE | 2023-12-17 13:24 | PTOTSP ---
Dysphagia Evaluation
Patient has chronic risk factors for dysphagia (i.e., TBI, L hemisphere aneurysm with right hemiparesis) but no known history of recent dysphagia or repeated pneumonias/respiratory infections.
Oral stage functional given edentulous status. Cannot distinguish baseline coughing from signs of aspiration while eating/drinking at the bedside.
Recommend:
1. Regular, Thin Liquids
2. Medications as best tolerated
3. Oral care 3x daily
4. Consider video swallow study if concerned for aspiration contributing to current PNA
--- NOTE | 2023-12-17 14:18 | W.PN.HOSP.TC ---
Today's Communication/Plan
-
VSE
?aspiration
follow up CXR
Assessment / Plan
Assessment / Plan
Mild posterior left lower lobe pneumonia
- treat as HAP as patient lives in facility
- Vanco/Cefepime
WBC 13.5-->6.8
- check MRSA and sputum cultures
- no blood cultures drawn by ER, will draw here with concern of develop sepsis if remains hypotensive
- prn nebs
- mucolytics
- chest PT/Acapella/IS
follow up CXR. consider CT scan
VSE
L hemisphere aneurysm with right hemiparesis
hx of TBI
hx of seizures
- continue Abilify
- continue Baclofen + Tramadol for spasticity and chronic pain
- continue Gabapentin
- continue Lacosamide + phenytoin
- continue Lamotrigine
- continue Ativan TID
- continue Mirtazapine
hx of hypothyroidism
- continue replacement
Essential HTN
CAD
- continue ASA/HLD
chronic tobacco abuse
- Nicotine patch
DVT ppx: Lovenox
Code: Full
Anticipated Discharge: 24 - 48 hours
Subjective/Interval History
-
Date of Service: December 17, 2023
Feels congested
Objective Data
-
Labs:
Laboratory Results
12/17/23
05:34
WBC 6.8
Hgb 12.2
Hct 37.8
Plt Count 183
Sodium 141
Potassium 4.0
Chloride 112 H
Carbon Dioxide 23
BUN 8
Creatinine 0.4 L
Glucose 84
Calcium 9.5
Vital Signs:
Vital Signs
Temp Pulse Resp BP Pulse Ox
98.0 F 65 18 99/56 94
12/17/23 07:55 12/17/23 07:55 12/17/23 07:55 12/17/23 07:55 12/17/23 07:55
I&O
12/16/23 12/17/23 12/18/23
06:59 06:59 06:59
Intake Total 640 / 640
Output Total 300 / 300
Balance 340 / 340
Review of Systems
-
History Source: Patient and Coordinated Provider
Constitutional: Denies Fever
Respiratory: Reports Cough and Trouble Breathing
Cardiac: Reports No Symptoms; Denies Chest Pain
Abdomen/GI: Reports No Symptoms
Physical Exam
-
General: Well Developed and Well Nourished
HEENT: Normocephalic, Atraumatic and Moist Mucous Membranes
Respiratory: Rales (diffuse rales) and Other (shallow respirations with splinting)
Cardiac: Regular Rhythm and S1/S2
GI: Soft, Nontender and Nondistended
Musculoskeletal: No Clubbing, No Cyanosis and No Edema
Neuro: Awake and Alert
[2023-12-17 16:02] VITALS: BP 114/70
[2023-12-17] MEDS: LOVENOX 40 MG SC (17:05)
[2023-12-17] MEDS: ULTRAM 50 MG PO (21:27)
[2023-12-17] MEDS: NEURONTIN 900 MG PO (21:27)
[2023-12-17] MEDS: CRESTOR 20 MG PO (21:27)
[2023-12-17] MEDS: SENOKOT 8.6 MG PO (21:27)
[2023-12-17] MEDS: ABILIFY 7.5 MG PO (21:27)
[2023-12-17] MEDS: REMERON 15 MG PO (21:28)
[2023-12-17 22:49] VITALS: BP 131/85
[2023-12-18] MEDS: MAXIPIME 1000 MG IV ×3 (02:41→17:24)
[2023-12-18] MEDS: STERILE WATER FOR INJECTION 10 ML IV ×3 (02:41→17:24)
[2023-12-18] MEDS: VANCOCIN 150 IV (06:23)
[2023-12-18] MEDS: SYNTHROID 25 MCG PO (06:23)
[2023-12-18 07:42] VITALS: BP 121/62
[2023-12-18] MEDS: LOW STRENGTH ASPIRIN 81 MG PO (08:35)
[2023-12-18] MEDS: MUCINEX 1200 MG PO ×2 (08:35→19:36)
[2023-12-18] MEDS: VIMPAT 200 MG PO ×2 (08:35→19:36)
[2023-12-18] MEDS: LAMICTAL 300 MG PO ×2 (08:35→16:11)
[2023-12-18] MEDS: DILANTIN 100 MG PO ×2 (08:35→19:36)
[2023-12-18] MEDS: VITAMIN B-12 1000 MCG PO (08:35)
[2023-12-18] MEDS: NICODERM TRANSDERMAL 7 MG TRANSDERM (08:35)
[2023-12-18] MEDS: NEURONTIN 600 MG PO (08:35)
[2023-12-18] MEDS: DILANTIN 50 MG PO ×2 (08:35→19:36)
[2023-12-18] MEDS: LIORESAL 5 MG PO ×2 (08:36→19:36)
[2023-12-18] MEDS: POLYSPORIN OINTMENT 1 APPLIC TOPICAL ×2 (08:36→19:36)
[2023-12-18] MEDS: ZINC OXIDE OINTMENT 1 APPLIC TOPICAL ×2 (08:36→19:40)
[2023-12-18] MEDS: ATIVAN 0.5 MG PO ×3 (08:36→22:11)
[2023-12-18] MEDS: FOLVITE 1 MG PO (08:36)
[2023-12-18] MEDS: VITAMIN C 500 MG PO (08:36)
[2023-12-18] MEDS: PEPCID 20 MG PO ×2 (08:36→19:36)
[2023-12-18] MEDS: MYCOSTATIN CREAM 1 APPLIC TOPICAL ×3 (08:37→22:12)
--- NOTE | 2023-12-18 14:40 | PHA.VAN.FU ---
Vancomycin Assessment / Plan
- Assessment
Renal Function: SCR Decreasing (0.5>0.4)
In the past 24 hrs, patient has been: Afebrile
Concomitant Antimicrobials: Cefepime
NO CBC drawn today
- Dosing Plan
Continue: Vancomcyin 750mg IV Q12hrs
- Monitoring Plan
No level(s) ordered at this time: Will order a vancomycin level 12/19/23 at 20:30 if pt remains on vancomycin
- Follow Up
Pharmacy will continue to follow.
Vancomycin Follow UP
- -
Patient Age: 58
Patient Sex: Female
Vancomycin Day #: 3
Indication: Pulmonary/Respiratory
Requesting Provider: DR. BROWNLEE
Height / Weight:
Height 5 ft 8 in
Actual Weight 57.3 kg
Pertinent Past Medical History: TBI, hx of hypothyroidism, seizures, HTN, CAD, R hemiparesis
- Vital Signs / Lab Results
Temp Pulse Resp BP Pulse Ox
98.1 F 64 16 121/62 98
12/18/23 07:42 12/18/23 07:42 12/18/23 07:42 12/18/23 07:42 12/18/23 07:42
Lab Results - Hematology
12/16/23 12/17/23
11:00 05:34
WBC 13.5 H 6.8
Lab Results - Chemistry
12/16/23 12/17/23
11:00 05:34
BUN 10 8
Creatinine 0.5 L 0.4 L
Estimated Creat Clear 94 94
Albumin 4.2
Microbiology Results
12/16/23 16:38 Blood Culture - Preliminary
Blood/Venous No Growth in 24 hours- Final report to follow
12/16/23 16:38 Blood Culture - Preliminary
Blood/Venous No Growth in 24 hours- Final report to follow
12/16/23 16:24 Nasal Screen MRSA (PCR) - Final
Nose MRSA not detected - performed by PCR methodology.
--- NOTE | 2023-12-18 14:45 | W.PN.HOSP.TC ---
Today's Communication/Plan
-
VSE on Wednesday
DC Vanco
Assessment / Plan
Assessment / Plan
Mild posterior left lower lobe pneumonia
- treat as HAP as patient lives in facility
- Vanco/Cefepime
dc Vanco with neg MRSA nasal swab
WBC 13.5-->6.8
- check MRSA and sputum cultures
- no blood cultures drawn by ER, will draw here with concern of develop sepsis if remains hypotensive
- prn nebs
- mucolytics
- chest PT/Acapella/IS
12/17 CXR: Mild bibasilar pneumonia, slightly improved on the left and slightly increased on the right.
Speech therapy raised concern for aspiration and plan is to check a VSE on Wednesday
L hemisphere aneurysm with right hemiparesis
hx of TBI
hx of seizures
- continue Abilify
- continue Baclofen + Tramadol for spasticity and chronic pain
- continue Gabapentin
- continue Lacosamide + phenytoin
- continue Lamotrigine
- continue Ativan TID
- continue Mirtazapine
hx of hypothyroidism
- continue replacement
Essential HTN
CAD
- continue ASA/HLD
chronic tobacco abuse
- Nicotine patch
DVT ppx: Lovenox
Code: Full
Anticipated Discharge: > 48 hours
Subjective/Interval History
-
Date of Service: December 18, 2023
Asking when she can go home
Objective Data
-
Vital Signs:
Vital Signs
Temp Pulse Resp BP Pulse Ox
98.1 F 64 16 121/62 98
12/18/23 07:42 12/18/23 07:42 12/18/23 07:42 12/18/23 07:42 12/18/23 07:42
I&O
12/17/23 12/18/23 12/19/23
06:59 06:59 06:59
Intake Total 640 / 640
Output Total 300 / 300 750 / 750
Balance 340 / 340 -750 / -750
Review of Systems
-
History Source: Patient and Coordinated Provider
Constitutional: Denies Fever
Respiratory: Reports Cough (still active, wet cough) and Trouble Breathing (better)
Cardiac: Reports No Symptoms; Denies Chest Pain
Abdomen/GI: Reports No Symptoms
Physical Exam
-
General: Well Developed and Well Nourished
HEENT: Normocephalic, Atraumatic and Moist Mucous Membranes
Respiratory: Rales (diffuse rales) and Other (shallow respirations with splinting somewhat better, with rhonchus cough)
Cardiac: Regular Rhythm and S1/S2
GI: Soft, Nontender and Nondistended
Musculoskeletal: No Clubbing, No Cyanosis and No Edema
Neuro: Awake and Alert
[2023-12-18 15:15] VITALS: BP 110/64
--- NOTE | 2023-12-18 16:17 | CM ---
Alert awake forgetful patient who lives in [facility] . Lm with brother . Spoke with Alireza [phone] she said pt uses a walker and wheelchair . She can ambulate short distances.She is assisted in all activities of daily
living.Alireza said they can transport pt back M-F before 5 pm.Pt said she lives to smoke.
Pharmacy [facility]
PCP Dr Bernard
PLAN Return to Nursing Home when medically ready
[2023-12-18] MEDS: LOVENOX 40 MG SC (17:23)
[2023-12-18] MEDS: NEURONTIN 900 MG PO (22:10)
[2023-12-18] MEDS: ULTRAM 50 MG PO (22:11)
[2023-12-18] MEDS: ABILIFY 7.5 MG PO (22:11)
[2023-12-18] MEDS: CRESTOR 20 MG PO (22:11)
[2023-12-18] MEDS: SENOKOT 8.6 MG PO (22:11)
[2023-12-18] MEDS: REMERON 15 MG PO (22:11)
[2023-12-18 23:00] VITALS: BP 120/66
[2023-12-19] MEDS: STERILE WATER FOR INJECTION 10 ML IV ×3 (02:23→17:15)
[2023-12-19] MEDS: MAXIPIME 1000 MG IV ×3 (02:23→17:15)
[2023-12-19] MEDS: SYNTHROID 25 MCG PO (05:55)
[2023-12-19 07:44] VITALS: BP 99/60
[2023-12-19] MEDS: POLYSPORIN OINTMENT 1 APPLIC TOPICAL ×2 (09:02→19:49)
[2023-12-19] MEDS: VITAMIN C 500 MG PO (09:02)
[2023-12-19] MEDS: LAMICTAL 300 MG PO ×2 (09:03→17:15)
[2023-12-19] MEDS: DILANTIN 100 MG PO ×2 (09:03→19:49)
[2023-12-19] MEDS: VITAMIN B-12 1000 MCG PO (09:03)
[2023-12-19] MEDS: LOW STRENGTH ASPIRIN 81 MG PO (09:04)
[2023-12-19] MEDS: FOLVITE 1 MG PO (09:04)
[2023-12-19] MEDS: DILANTIN 50 MG PO ×2 (09:04→19:47)
[2023-12-19] MEDS: VIMPAT 200 MG PO ×2 (09:04→19:49)
[2023-12-19] MEDS: PEPCID 20 MG PO ×2 (09:04→19:49)
[2023-12-19] MEDS: MUCINEX 1200 MG PO ×2 (09:04→19:46)
[2023-12-19] MEDS: LIORESAL 5 MG PO ×2 (09:04→19:47)
[2023-12-19] MEDS: ATIVAN 0.5 MG PO ×3 (09:04→21:28)
[2023-12-19] MEDS: NEURONTIN 600 MG PO (09:05)
[2023-12-19] MEDS: ZINC OXIDE OINTMENT 1 APPLIC TOPICAL ×2 (09:05→19:52)
[2023-12-19] MEDS: MYCOSTATIN CREAM 1 APPLIC TOPICAL ×3 (09:05→21:29)
[2023-12-19] MEDS: NICODERM TRANSDERMAL 7 MG TRANSDERM (09:06)
--- NOTE | 2023-12-19 11:50 | W.PN.HOSP.TC ---
Today's Communication/Plan
-
recheck CBC
VSE in AM
If continues to improve, potential dc next 24-48 hrs
Assessment / Plan
Assessment / Plan
Mild posterior left lower lobe pneumonia
- treat as HAP as patient lives in facility
- Vanco/Cefepime
dc Vanco with neg MRSA nasal swab
WBC 13.5-->6.8
- check MRSA and sputum cultures
- no blood cultures drawn by ER, will draw here with concern of develop sepsis if remains hypotensive
- prn nebs
- mucolytics
- chest PT/Acapella/IS
12/17 CXR: Mild bibasilar pneumonia, slightly improved on the left and slightly increased on the right.
Speech therapy raised concern for aspiration and plan is to check a VSE on Wednesday
L hemisphere aneurysm with right hemiparesis
input of Phys Therapy appreciated
hx of TBI
hx of seizures
- continue Abilify
- continue Baclofen + Tramadol for spasticity and chronic pain
- continue Gabapentin
- continue Lacosamide + phenytoin
- continue Lamotrigine
- continue Ativan TID
- continue Mirtazapine
hx of hypothyroidism
- continue replacement
Essential HTN
CAD
- continue ASA/HLD
chronic tobacco abuse
- Nicotine patch
DVT ppx: Lovenox
Code: Full
Anticipated Discharge: 24 - 48 hours
Subjective/Interval History
-
Date of Service: December 19, 2023
Awake, alert, denies respiratory distress
Objective Data
-
Vital Signs:
Vital Signs
Temp Pulse Resp BP Pulse Ox
97.9 F 68 16 99/60 97
12/19/23 07:44 12/19/23 07:44 12/19/23 07:44 12/19/23 07:44 12/19/23 07:44
I&O
12/18/23 12/19/23 12/20/23
06:59 06:59 06:59
Intake Total 1500 / 1500
Output Total 750 / 750
Balance -750 / -750 1500 / 1500
Review of Systems
-
History Source: Patient and Coordinated Provider
Constitutional: Denies Fever
Respiratory: Reports Cough (signifianty decreased); Denies Trouble Breathing (better)
Cardiac: Reports No Symptoms; Denies Chest Pain
Abdomen/GI: Reports No Symptoms
Neuro: Reports Other (chronic Rt hemiparesis)
Physical Exam
-
General: Well Developed and Well Nourished
HEENT: Normocephalic, Atraumatic and Moist Mucous Membranes
Respiratory: Other (shallow respirations with splinting somewhat better, resolved rhonchus cough); Negative Rales (much clearer)
Cardiac: Regular Rhythm and S1/S2
GI: Soft, Nontender and Nondistended
Musculoskeletal: No Clubbing, No Cyanosis and No Edema
Neuro: Awake, Alert and Other (rt hemiparesis, pt states at baseline)
--- NOTE | 2023-12-19 14:33 | PTCARENOTE ---
PT making multiple attempts to get out of bed. not redirectable and not following instructions. she stated i can do it. She wanted to sit into chair . with the assistance of three nurses. we all surrounded her in the even she would need
assistance, but pt was independently able to change her position from lying to sitting up in bed, Sitting up in bed to sitting on side of bed. She was able to get her self independently to chair however, she was not safe and did need at least one
assist. Pt verbally contracted to not get out of bed. and chair alarm on. within ten minutes she was trying to stand up. she wanted to ' go'. We got her back to bed with one assist and she has stayed since. We noted her feet had alot of thick
peeling dry skin and had a foul odor. this nurse spent 35 minutes providing a foot care. . pt very happy with care.
[2023-12-19 15:59] VITALS: BP 101/62
[2023-12-19 16:09] VITALS: BP 113/66; PULSE 69; O2SAT 95
[2023-12-19] MEDS: LOVENOX 40 MG SC (17:16)
[2023-12-19] MEDS: ABILIFY 7.5 MG PO (21:28)
[2023-12-19] MEDS: SENOKOT 8.6 MG PO (21:28)
[2023-12-19] MEDS: REMERON 15 MG PO (21:28)
[2023-12-19] MEDS: CRESTOR 20 MG PO (21:28)
[2023-12-19] MEDS: ULTRAM 50 MG PO (21:28)
[2023-12-19] MEDS: NEURONTIN 900 MG PO (21:28)
[2023-12-19 23:03] VITALS: BP 118/55
[2023-12-20] MEDS: MAXIPIME 1000 MG IV (02:29)
[2023-12-20] MEDS: STERILE WATER FOR INJECTION 10 ML IV ×2 (02:29→11:25)
[2023-12-20] MEDS: SYNTHROID 25 MCG PO (05:47)
[2023-12-20 05:59] LABS: % Basophils 0.7 % (0-2); % Eosinophils 3.6 % (0-6); % Immature Granulocytes 0.2 % (0-0.5); % Lymphocytes 38.1 % (20.5-51.1); % Monocytes 7.3 % (1.7-9.3); % Neutrophils 50.1 % (42.2-75.2); Absolute Eosinophils 0.2 10^3/uL (0-0.7); Absolute Lymphocytes 2.2 10^3/uL (1.2-3.4); Absolute Monocytes 0.4 10^3/uL (0.1-0.6); Hematocrit 43.8 % (37.0-47.0); Hemoglobin 14.5 g/dL (12.0-16.0); Mean Corp Hgb Conc. 33.1 g/dL (33.0-37.0); Mean Corpuscular Hgb 30.5 pg (27.0-31.0); Mean Corpuscular Volume 92.2 fL (81.0-99.0); Mean Platelet Volume 9.4 fL (7.4-10.4); Nucleated Red Blood Cells % 0 %; Platelet Count 201 10^3/uL (130-400); Red Blood Cell Count 4.75 10^6/uL (4.20-5.40); Red Cell Dist. Width 12.6 % (11.5-14.5); White Blood Cell Count 5.9 10^3/uL (4.8-10.8)
[2023-12-20 07:00] VITALS: BP 123/77
[2023-12-20] MEDS: NEURONTIN 600 MG PO (08:35)
[2023-12-20] MEDS: NICODERM TRANSDERMAL 7 MG TRANSDERM (08:35)
[2023-12-20] MEDS: LAMICTAL 300 MG PO ×2 (08:36→17:22)
[2023-12-20] MEDS: MUCINEX 1200 MG PO (08:36)
[2023-12-20] MEDS: DILANTIN 100 MG PO (08:36)
[2023-12-20] MEDS: VITAMIN B-12 1000 MCG PO (08:37)
[2023-12-20] MEDS: LOW STRENGTH ASPIRIN 81 MG PO (08:37)
[2023-12-20] MEDS: ATIVAN 0.5 MG PO ×2 (08:37→15:44)
[2023-12-20] MEDS: LIORESAL 5 MG PO (08:37)
[2023-12-20] MEDS: VIMPAT 200 MG PO (08:38)
[2023-12-20] MEDS: FOLVITE 1 MG PO (08:38)
[2023-12-20] MEDS: PEPCID 20 MG PO (08:38)
[2023-12-20] MEDS: VITAMIN C 500 MG PO (08:38)
[2023-12-20] MEDS: POLYSPORIN OINTMENT 1 APPLIC TOPICAL (08:38)
[2023-12-20] MEDS: DILANTIN 50 MG PO (08:38)
[2023-12-20] MEDS: MYCOSTATIN CREAM 1 APPLIC TOPICAL ×2 (08:39→15:46)
[2023-12-20] MEDS: ZINC OXIDE OINTMENT 1 APPLIC TOPICAL (08:40)
--- NOTE | 2023-12-20 10:19 | W.PN.HOSP.TC ---
Today's Communication/Plan
-
dc
Assessment / Plan
Assessment / Plan
Mild posterior left lower lobe pneumonia
- treat as HAP as patient lives in facility
- s/p Vanco/Cefepime
dc Vanco with neg MRSA nasal swab
WBC 13.5-->6.8
- MRSA negative) . No sputum production.
- Blood cultures no growth.
- prn nebs
- mucolytics
- chest PT/Acapella/IS
12/17 CXR: Mild bibasilar pneumonia, slightly improved on the left and slightly increased on the right.
Speech therapy raised concern for aspiration and plan is to check a VSE today
L hemisphere aneurysm with right hemiparesis
input of Phys Therapy appreciated
hx of TBI
hx of seizures
- continue Abilify
- continue Baclofen + Tramadol for spasticity and chronic pain
- continue Gabapentin
- continue Lacosamide + phenytoin
- continue Lamotrigine
- continue Ativan TID
- continue Mirtazapine
hx of hypothyroidism
- continue replacement
Essential HTN
CAD
- continue ASA/HLD
chronic tobacco abuse
- Nicotine patch
DVT ppx: Lovenox
Code: Full
Total discharge time spent to see the patient, examine the patient, review data and lab results, and discuss the discharge plan with patient, nurse around 65 minutes
Anticipated Discharge: Today
Subjective/Interval History
-
Date of Service: December 20, 2023
She wants to leave hospital
No pain issues, no headache
Objective Data
-
Labs:
Laboratory Results
12/20/23
05:36
WBC 5.9
Hgb 14.5
Hct 43.8
Plt Count 201
Vital Signs:
Vital Signs
Temp Pulse Resp BP Pulse Ox
97.9 F 70 18 123/77 93
12/20/23 07:00 12/20/23 07:00 12/20/23 07:00 12/20/23 07:00 12/20/23 07:00
I&O
12/19/23 12/20/23 12/21/23
06:59 06:59 06:59
Intake Total 1500 / 1500 1320 / 1320
Balance 1500 / 1500 1320 / 1320
[2023-12-20] MEDS: MAXIPIME IV (10:39)
[2023-12-20] MEDS: STERILE WATER FOR INJECTION IV (10:41)
[2023-12-20] MEDS: ROCEPHIN 1000 MG IV (11:26)
--- NOTE | 2023-12-20 11:26 | PTOTSP ---
Video Swallow Study
Summary: Patient with mild oral and moderate pharyngeal dysphagia with trace aspiration with thin liquids and mildly thick liquids which cleared trachea but not larynx with cued and spontaneous coughing. Chin tuck eliminated aspiration with mildly
thick liquids. Esophageal sweep revealed retention which did not clear with a liquid wash. Please see patient care note for details.
Patient will likely be unable to consistently recall/implement compensatory swallowing strategies at this time given her cognitive status (prior brain injury). Risk for aspiration of thickened liquids is present without use of compensatory
strategies. Aspiration of thickened liquids increases risk for pulmonary injury when compared to thin liquids. For this reason, consider continuation of thin liquids with close attention to modifiable factors which contribute to aspiration PNA
risk (i.e., thorough oral care, mobility as tolerated).
Outpatient dysphagia therapy warranted to focus on rehabilitation (i.e., improving cough strength, introduction of a flow control device/adaptive straw or cup to limit bolus size when drinking).
Recommend:
1. Regular, Thin Liquids
2. Medications - whole in puree
3. Strategies: supervision/assist as needed, upright to 90 degrees, small single sips/bites, slow rate, intermittent cough/swallow, remain upright for at least minutes after meals.
4. Oral care at least 3x daily
5. Mobility as deemed appropriate by PT
6. Dysphagia therapy at the outpatient level.
7. Consider GI consult.
--- NOTE | 2023-12-20 12:35 | CM ---
Addendum entered by Colleen Grant 12/20/23 14:36:
Sister returned call and CM will email IMM to [email or web address]
Original Note:
Patient seen at bedside. Patient is from detention and per physician patient to be discharged home today. CM called and spoke with Lisbeth. Per nursing. Facility requested hard copy scripts for PT/OT, CM updated physician. Patient at baseline per
physical therapy and per facility they do not have drivers available today. CM spoke with acute care liaison and they will review patient to determine if patient qualifies for ambulance. Per liaison patient for ambulance transportation. CM will call
to patient guardian regarding IMM. CM will continue to follow for discharge planning needs.
Plan; home to [facility] and requesting PT/OT scripts.
--- NOTE | 2023-12-20 14:36 | W.DCSUMMARY ---
Discharge Summary
Discharge Data
Date of Admission: 12/16/23
Date of Discharge: 12/20/23
-
Pending Results: No
Hospital Course
58 years old female was sent from care home for generalized weakness. She was noted to have low oxygen saturation with no respiratory distress. Chest radiography showed mild posterior left lower lobe infiltrate with possible pneumonia.
Patient had no fever. Mild leukocytosis. Patient was started on empiric antibiotics. MRSA screen was negative. Blood culture did not show any growth. She did not have productive cough. Speech therapy evaluated the patient. She did have video
swallow that showed presence of aspiration of thickened liquids without the use of compensatory strategies. Speech therapist recommended to continue with regular and thin liquids with supervision. White blood cell count became normal. Repeat
chest radiography showed improvement in the infiltrate. Patient remained hemodynamically stable and was discharged in a stable condition
Discharge Plan
-
Patient Disposition: [facility]/SNF
Discharge Diagnosis/Procedures: Mild posterior left lower lobe pneumonia
Risk of aspiration, recommended speech evaluation and therapy in outpatient setting.
Additional Diets: .
Referrals:
Fredrick Norman DO [Family Provider] - in one to two weeks
Prescriptions:
New
cefdinir 300 mg capsule
300 mg PO BID Qty: 4 0RF
Continued
lamotrigine 150 MG tablet
300 mg PO BID@
Patient Comments:
[facility] transfer sheet lists meds but not when last administered.
famotidine 20 MG tablet
20 mg PO BID
Patient Comments:
[facility] transfer sheet lists meds but not when last administered.
baclofen 10 MG tablet
5 mg PO BID
Patient Comments:
[facility] transfer sheet lists meds but not when last administered.
aspirin 81 MG tablet,chewable
81 mg PO DAILY
acetaminophen 325 MG tablet
650 mg PO Q4HPRN PRN (Reason: pain or fever > 100.5)
Patient Comments:
[facility] transfer sheet lists meds but not when last administered.
loperamide 2 MG capsule
2 mg PO Q6HPRN PRN (Reason: after each loose stool)
Patient Comments:
[facility] transfer sheet lists meds but not when last administered.
diphenhydramine HCl [Banophen] 25 MG capsule
2 capsules PO HSPRN PRN (Reason: anxiety)
Patient Comments:
12/16/23: Rx states may repeat dose every 2 hours prn for max 3 doses
sennosides [senna] 8.6 mg Tablet
8.6 mg PO HS
cyanocobalamin (vitamin B-12) 1,000 mcg Tablet
1,000 mcg PO DAILY
phenytoin sodium extended 100 mg Capsule
100 mg PO BID
Rx Instructions:
give with phenytoin 50mg
phenytoin 50 mg Tablet,Chewable
50 mg PO BID
Rx Instructions:
give with phenytoin ER 100mg
tramadol 50 mg Tablet
50 mg PO HS
zinc oxide 20 % Ointment
1 applic TOPICAL BID
levothyroxine 25 mcg Tablet
25 mcg PO DAILY@0600
lorazepam 0.5 mg Tablet
0.5 mg PO TID
ascorbic acid (vitamin C) 500 mg Tablet
500 mg PO DAILY
nystatin 100,000 unit/gram Cream
1 applic TOPICAL TID
gabapentin 300 mg Capsule
900 mg PO HS
gabapentin 300 mg Capsule
600 mg PO DAILY
folic acid 1 mg Tablet
1 mg PO DAILY
mirtazapine 15 mg Tablet
15 mg PO HS
ondansetron 4 mg Tablet,Disintegrating
4 mg PO Q4HPRN PRN (Reason: nausea/vomiting)
ziprasidone mesylate 20 mg/mL (final conc.) Recon Soln
20 mg IM [id number] PRN (Reason: agitation)
aripiprazole 15 mg Tablet
7.5 mg PO HS
bacitracin 500 unit/gram Packet
1 applic TOPICAL BID
rosuvastatin 20 mg Tablet
20 mg PO HS
lacosamide 200 mg Tablet
200 mg PO BID
Nayzilam 5 mg/spray (0.1 mL) [place],Non-Aerosol
5 mg INTRANASAL [id number] 10mg PRN (Reason: prolonged seizure)
Discontinued
amoxicillin-pot clavulanate 875-125 mg Tablet
1 tab PO BID
Discharge Orders:
Discharge Patient (As Directed); Ordered 12/20/23
Ordered By: Jose Avina
Discharge Date and Time
Print Language: SWISS
[2023-12-20 15:00] VITALS: BP 118/70
[2023-12-20] MEDS: LOVENOX 40 MG SC (17:22)
[2023-12-20 18:39] VITALS: BP 112/85
--- NOTE | 2023-12-24 12:02 | PN.CDI ---
Addendum entered and electronically signed by Jose Avina MD 12/24/23 13:45:
Aspiration Pneumonia -
Original Note:
CDI
- -
CDI:
Physician Documentation Request
Admit Date: 12/16/23 14:08
Dear Doctor Kailyn,
Please review the following and provide your response in the progress notes.
Clinical Indicators:
12/17 PN: Mild posterior left lower lobe pneumonia-treat as HAP as patient lives in facility
speech therapy raised concern for aspiration and plan is to check a VSE
12/19 DS: she did have VSE that showed presence of aspiration of thickened liquids without the use of compensatory strategies
Discharge Dx Mild posterior LLL pneumonia, Risk of aspiration
Based on the above, could you clarify in the Progress Notes further specificity regarding the known, suspected or likely type of pneumonia you are treating (recognizing the specific organism may not be known)?
Examples
Aspiration Pneumonia - indicate substance such as food or vomitus, oils or other solids or liquids
HAP
Unable to determine
Other type
Use of terms such as suspected, likely, concern for, or probable (associated with a specific diagnosis that is being evaluated, monitored, or treated as if it exists) are acceptable and can be coded in the inpatient setting, when documented at the
time of discharge.
Thank you,
Lori Spears
[facility] Inpatient
Please use your independent medical judgment in providing your response.
== END 2023-12-20 19:27 | DRG 178 ==
LOC: 3 WEST ACU 14:08
PROVIDERS: Internal Medicine; Physician Assistant; ADMITTING PHYSICIAN Internal Medicine; ATTENDING PHYSICIAN Internal Medicine; EMERGENCY PHYSICIAN Emergency Medicine; FAMILY PHYSICIAN Internal Medicine Geriatric Medicine
DX: J69.0 Pneumonitis due to inhalation of food and vomit (principal); I69.851 Hemiplegia and hemiparesis following other cerebrovascular disease affecting right dominant side; I10 Essential (primary) hypertension; E03.9 Hypothyroidism, unspecified; G40.909 Epilepsy, unspecified, not intractable, without status epilepticus; I25.10 Atherosclerotic heart disease of native coronary artery without angina pectoris; Y95 Nosocomial condition; Z87.820 Personal history of traumatic brain injury; Z79.82 Long term (current) use of aspirin; Z79.890 Hormone replacement therapy; Z79.899 Other long term (current) drug therapy; Z72.0 Tobacco use; Z11.52 Encounter for screening for COVID-19
CPT/HCPCS: 71046; 74230; 80048; 80053; 81003; 84484; 85025; 87040; 87070; 87641; 87811; 92526; 92610; 92611; 93005; 94667; 96361; 96365; 96367; 97161; 97165; 97530; 99285

== ENCOUNTER 2024-02-01 09:44 | Emergency (ER) | payer MEDICARE, OTHER, SELFPAY ==
[2024-02-01 09:46] VITALS: BP 116/76
--- NOTE | 2024-02-01 09:59 | ED.GENMED ---
History of Present Illness
General
Chief Complaint: Fall
Source: patient, records and ambulance crew
Time Seen by Provider: 02/01/24 09:49
History of Present Illness
History of Present Illness:
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
morning. Patient states she does not really remember what happened but states at present time she feels as if she is at her baseline state of health. She denies any headache, visual changes, focal weakness or numbness, extremity related concerns.
Patient does have a noted sling to her right upper extremity from a recent ulnar fracture from another fall. Denies any use of anticoagulants. Social history was noted for cigarette use and patient notes that she has a chronic smoker's cough.
Past History
Past History
ED Past Medical History: CAD, HTN, Seizures, Hypothyroidism, Psychiatric and Other (TBI)
ED Past Surgical History: Brain
Social History
Tobacco: Non-smoker
Alcohol: None
Drug: None
Personal: Single
Living: long term
Family History
Family History: Unable to obtain
Review of Systems
Review of Systems
All Other Systems: ROS reviewed and negative except as documented in HPI and ROS
Phy Exam
Physical Exam
Physical Exam:
GENERAL: Alert , in no apparent distress
HEAD: NCAT
EYE: conjunctiva clear
NECK: Supple, no significant adenopathy.
ENT: o/p clr, mmm.
CARDIAC: Regular rate and rhythm
LUNGS: Rhonchorous lung sounds throughout which is reportedly baseline for patient, no acute respiratory distress tachypnea, no wheezes or rails
NEUROLOGICAL: Alert and oriented, right-sided hemiparesis
SKIN: Warm and dry, skin intact.
MUSCULOSKELETAL: well perfused.
PSYCH: Normal and appropriate interaction.
Scores
Heart Failure Risk
Heart Failure Risk Score: Not Applicable
Heart Score for Chest Pain Patients
STEMI patient?: Not applicable
Withdrawal Assessment of Alcohol
Withdrawal Assessment Completed?: Not applicable
Course
Orders/Labs/Results
Orders:
Orders
02/01/24 09:58
Electrocardiogram (*1) Urgent
Reason for Study: Syncope
CT Head W/o Iv Contrast Urgent
Comment:
Reason For Exam: unwitnessed fall
EKG- Treatment ONCE
Basic Metabolic Panel Urgent
02/01/24 11:04
Complete Blood Count/With Diff Urgent
Abnormal Lab Results
02/01/24
11:04
Absolute Neuts (auto) 7.9 H 10^3/uL
(1.4-6.5)
Neutrophils % 76.5 H %
(42.2-75.2)
Lymphocytes % 16.1 L %
(20.5-51.1)
02/01/24 11:04
Vital Signs
Initial and Last Documented VS:
Initial Vital Signs
Temp Pulse Resp BP Pulse Ox
98.1 F 86 16 116/76 96
02/01/24 09:46 02/01/24 09:46 02/01/24 09:46 02/01/24 09:46 02/01/24 09:46
Last Documented Vital Signs
Temp Pulse Resp BP Pulse Ox
98.1 F 86 16 116/76 95
02/01/24 09:46 02/01/24 09:46 02/01/24 09:46 02/01/24 09:46 02/01/24 09:46
MDM/Problems Addressed
Differential Diagnosis Includes:
Accidental fall, syncope, intracranial bleeding, anemia, electrolyte disturbance
MDM/Problems Addressed:
58-year-old female presenting to the ER after reported accidental fall (this was unwitnessed), patient unable to recall events and does have a noted history of short-term memory issues. Apparently has an issue with falling and balance given her
right-sided hemiparesis. Reportedly at baseline presently. Given the fall and that this was unwitnessed will obtain a CT of the head especially given patient's chronic TBI. Labs ordered as well as EKG
Chronic conditions affecting care: Neurological disorder (TBI)
*Radiology
Radiology exam reviewed: radiology read reviewed
*Pulse Oximetry
Patient hypoxic: no
*Critical Care Note
Total Time (30-74mins, 75-104mins- exclusive of procedures): Not Applicable
Patient Management
Escalation/DeEscalation of care consider admission/obs:
Patient's head CT is negative for any acute intracranial pathologies. EKG is negative for any ischemia or ectopy. Patient stable for discharge back to her nursing facility. Aware of return precautions to the ER.
ED Attending Note
-
Portions of this chart may have been created with voice recognition software.� Occasional wrong word or��sound alike� substitutions may have occurred due to the inherent limitations of voice recognition software.
Discharge Plan
Departure
Patient Disposition: [facility]/SNF
Date of Disposition: 02/01/24
Time of Disposition: 12:01
Patient with high blood pressure during this ER visit?: No
Discharge Problem:
Accidental fall
Instructions: Preventing falls in adults
Prescriptions:
No Action
lamotrigine 150 MG tablet
300 mg PO BID@
Patient Comments:
[facility] transfer sheet lists meds but not when last administered.
famotidine 20 MG tablet
20 mg PO BID
Patient Comments:
[facility] transfer sheet lists meds but not when last administered.
baclofen 10 MG tablet
5 mg PO BID
Patient Comments:
[facility] transfer sheet lists meds but not when last administered.
aspirin 81 MG tablet,chewable
81 mg PO DAILY
acetaminophen 325 MG tablet
650 mg PO Q4HPRN PRN (Reason: pain or fever > 100.5)
Patient Comments:
[facility] transfer sheet lists meds but not when last administered.
loperamide 2 MG capsule
2 mg PO Q6HPRN PRN (Reason: after each loose stool)
Patient Comments:
[facility] transfer sheet lists meds but not when last administered.
diphenhydramine HCl [Banophen] 25 MG capsule
2 capsules PO HSPRN PRN (Reason: anxiety)
Patient Comments:
12/16/23: Rx states may repeat dose every 2 hours prn for max 3 doses
sennosides [senna] 8.6 mg Tablet
8.6 mg PO HS
cyanocobalamin (vitamin B-12) 1,000 mcg Tablet
1,000 mcg PO DAILY
phenytoin sodium extended 100 mg Capsule
100 mg PO BID
Rx Instructions:
give with phenytoin 50mg
phenytoin 50 mg Tablet,Chewable
50 mg PO BID
Rx Instructions:
give with phenytoin ER 100mg
tramadol 50 mg Tablet
50 mg PO HS
zinc oxide 20 % Ointment
1 applic TOPICAL BID
levothyroxine 25 mcg Tablet
25 mcg PO DAILY@0600
lorazepam 0.5 mg Tablet
0.5 mg PO TID
ascorbic acid (vitamin C) 500 mg Tablet
500 mg PO DAILY
nystatin 100,000 unit/gram Cream
1 applic TOPICAL TID
gabapentin 300 mg Capsule
900 mg PO HS
gabapentin 300 mg Capsule
600 mg PO DAILY
folic acid 1 mg Tablet
1 mg PO DAILY
mirtazapine 15 mg Tablet
15 mg PO HS
ondansetron 4 mg Tablet,Disintegrating
4 mg PO Q4HPRN PRN (Reason: nausea/vomiting)
ziprasidone mesylate 20 mg/mL (final conc.) Recon Soln
20 mg IM [id number] PRN (Reason: agitation)
aripiprazole 15 mg Tablet
7.5 mg PO HS
bacitracin 500 unit/gram Packet
1 applic TOPICAL BID
rosuvastatin 20 mg Tablet
20 mg PO HS
lacosamide 200 mg Tablet
200 mg PO BID
Nayzilam 5 mg/spray (0.1 mL) [place],Non-Aerosol
5 mg INTRANASAL [id number] MDD 10mg PRN (Reason: prolonged seizure)
cefdinir 300 mg capsule
300 mg PO BID Qty: 4 0RF
Referrals:
Fredrick Norman DO [Family Provider] -
Interventions
Interventions:
*Risk Screen - Suicide Last Done: 02/01/24 09:46
*General Assessment Last Done: 02/01/24 09:46
*Neglect/Abuse Screening Last Done: 02/01/24 09:46
*ED COVID-19 Vaccine History Last Done: 02/01/24 09:46
ED-Musculoskeletal Assessment Last Done: 02/01/24 12:04
ED- Neurological Assessment Last Done: 02/01/24 12:03
Discharge Date and Time
Print Language: WOLOF
[2024-02-01 11:18] LABS: % Basophils 0.4 % (0-2); % Eosinophils 1.2 % (0-6); % Immature Granulocytes 0.3 % (0-0.5); % Lymphocytes 16.1 % (20.5-51.1); % Monocytes 5.5 % (1.7-9.3); % Neutrophils 76.5 % (42.2-75.2); Absolute Eosinophils 0.1 10^3/uL (0-0.7); Absolute Lymphocytes 1.7 10^3/uL (1.2-3.4); Absolute Monocytes 0.6 10^3/uL (0.1-0.6); Absolute Neutrophils 7.9 10^3/uL (1.4-6.5); Hematocrit 42.6 % (37.0-47.0); Hemoglobin 14.3 g/dL (12.0-16.0); Mean Corp Hgb Conc. 33.6 g/dL (33.0-37.0); Mean Corpuscular Hgb 30.3 pg (27.0-31.0); Mean Corpuscular Volume 90.3 fL (81.0-99.0); Mean Platelet Volume 9.4 fL (7.4-10.4); Nucleated Red Blood Cells % 0 %; Platelet Count 255 10^3/uL (130-400); Red Blood Cell Count 4.72 10^6/uL (4.20-5.40); Red Cell Dist. Width 13.1 % (11.5-14.5); White Blood Cell Count 10.3 10^3/uL (4.8-10.8)
[2024-02-01 13:26] LABS: Blood Urea Nitrogen 7 mg/dl (7-17); Calcium 10.1 mg/dl (8.4-10.2); Carbon Dioxide 27 mmol/L (22-30); Chloride 106 mmol/L (98-107); Estimated Creatinine Clearance 97 ml/min; Glucose 95 mg/dl (70-99); Potassium 3.7 mmol/L (3.5-5.1); Sodium 142 mmol/L (135-145); eGFR > 60.00
[2024-02-01 14:39] VITALS: BP 118/62
== END 2024-02-01 14:44 ==
LOC: EMR 09:44
PROVIDERS: Physician Assistant Medical; EMERGENCY PHYSICIAN Student in an Organized Health Care Education/Training Program; FAMILY PHYSICIAN Internal Medicine Geriatric Medicine
DX: Z04.3 Encounter for examination and observation following other accident (principal); W19.XXXA Unspecified fall, initial encounter; I69.851 Hemiplegia and hemiparesis following other cerebrovascular disease affecting right dominant side; I10 Essential (primary) hypertension; J41.0 Simple chronic bronchitis; I25.10 Atherosclerotic heart disease of native coronary artery without angina pectoris; E03.9 Hypothyroidism, unspecified; R56.9 Unspecified convulsions; Z91.81 History of falling
CPT/HCPCS: 99284; 70450; 80048; 85025; 93005

== ENCOUNTER 2024-06-19 09:06 | Emergency (ER) | payer MEDICARE, OTHER, SELFPAY ==
[2024-06-19 09:15] VITALS: BP 119/65
[2024-06-19 09:22] VITALS: BMI 19.0
--- NOTE | 2024-06-19 09:30 | ED.GENMED ---
History of Present Illness
<Gaby Yadav PA-C - Last Filed: 06/19/24 13:25>
General
Chief Complaint: Fall
Source: patient
Exam Limitations: clinical condition (hx TBI)
Time Seen by Provider: 06/19/24 09:12
Nursing documentation reviewed up to this point in time: agreed with
History of Present Illness
History of Present Illness:
Patient is a 58-year-old female with history of cerebral aneurysm resulting in TBI and right sided hemiparesis, epilepsy, hypertension presenting to the emergency department for evaluation following slip and fall with head strike. Patient was
reportedly transferring from wheelchair when she fell forward striking her head on the ground. She does have a small laceration to her right eyebrow. There is no report of loss of consciousness. Patient is not on any blood thinners.
Patient denies any headache or neck pain. Patient denies any chest pain, shortness of breath, or abdominal pain. No extremity pain.
Past History
<Gaby Yadav PA-C - Last Filed: 06/19/24 13:25>
Past History
ED Past Medical History: CAD, HTN, Seizures, Hypothyroidism, Psychiatric and Other (TBI)
ED Past Surgical History: Brain
Social History
Tobacco: Non-smoker
Alcohol: None
Drug: None
Personal: Single
Living: assisted
Family History
Family History: Unable to obtain
Review of Systems
<Gaby Yadav PA-C - Last Filed: 06/19/24 13:25>
Review of Systems
Allergies reviewed?: Yes
All Other Systems: ROS reviewed and negative except as documented in HPI and ROS
Phy Exam
<Gaby Yadav PA-C - Last Filed: 06/19/24 13:25>
Physical Exam
Physical Exam:
GENERAL: No acute distress
HEENT: 2 cm linear laceration to right eyebrow, extraocular muscles intact, no signs of entrapment, dentition intact, no other obvious trauma
NECK: no midline tenderness, normal range of motion, no other obvious trauma
BACK: no midline tenderness, no other obvious trauma
CHEST: no tenderness, no flail segment, no subcutaneous emphysema, no other obvious trauma
LUNGS: clear to auscultation bilaterally
CARDIOVASCULAR: regular rate and rhythm
ABDOMEN: soft, non-tender, no masses, no other obvious trauma
PELVIS: stable, no obvious injury
EXTREMITIES: moving all extremities, distal pulses intact, no pain with internal/external rotation of bilateral hips, no other obvious trauma
NEUROLOGIC: awake, alert x 3, right-sided hemiparesis (baseline per patient)
Course
<Gaby Yadav PA-C - Last Filed: 06/19/24 13:25>
Orders/Labs/Results
Orders:
Orders
06/19/24 09:30
CT Head W/o Iv Contrast Urgent
Comment:
Reason For Exam: fall, head strike
CR Chest - 2 Views Urgent
Comment:
Reason For Exam: hypoxia, fall
Vital Signs
Initial and Last Documented VS:
Initial Vital Signs
Temp Pulse Resp BP Pulse Ox
98.5 F 92 18 119/65 90
06/19/24 09:15 06/19/24 09:15 06/19/24 09:15 06/19/24 09:15 06/19/24 09:15
Last Documented Vital Signs
Temp Pulse Resp BP Pulse Ox
98.5 F 87 18 117/67 94
06/19/24 09:15 06/19/24 11:04 06/19/24 11:04 06/19/24 11:04 06/19/24 11:04
<Paulie Gutierrez DO - Last Filed: 06/19/24 09:34>
Orders/Labs/Results
Orders:
Orders
06/19/24 09:30
CT Head W/o Iv Contrast Urgent
Comment:
Reason For Exam: fall, head strike
CR Chest - 2 Views Urgent
Comment:
Reason For Exam: hypoxia, fall
Vital Signs
Initial and Last Documented VS:
Initial Vital Signs
Temp Pulse Resp BP Pulse Ox
98.5 F 92 18 119/65 90
06/19/24 09:15 06/19/24 09:15 06/19/24 09:15 06/19/24 09:15 06/19/24 09:15
Last Documented Vital Signs
Temp Pulse Resp BP Pulse Ox
98.5 F 87 18 117/67 94
06/19/24 09:15 06/19/24 11:04 06/19/24 11:04 06/19/24 11:04 06/19/24 11:04
Procedures
<Gaby Yadav PA-C - Last Filed: 06/19/24 13:25>
Laceration Closure
Right Eye brow:
Status of Wound: clean
Size of Wound in cm: 2.5
Description of Wound Edges: sharp
Preparation: cleaned with saline
Anesthesia: 1% Lidocaine with epi
Revision/Debridement: routine- no revision
Wound exploration: explored to base- no FB
Type of Closure: single layer closure and interrupted sutures
Skin Closure Material: 5-0 nylon
Number of sutures: 3
<Gaby Yadav PA-C - Last Filed: 06/19/24 13:25>
MDM/Problems Addressed
Differential Diagnosis Includes:
Not limited to: laceration, contusion, concussion, intracerebral hemorrhage, etc
MDM/Problems Addressed:
58-year-old female with history as documented presenting after slip and fall with associated head strike. This fall was witnessed and there was no associated loss of consciousness. 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
1984. Patient arrives without any current complaints. Patient borderline hypoxic on arrival with O2 sat of 90 on room air-placed on 2 L. Otherwise she is stable vital signs. Exam as above. No C-spine tenderness. Patient has full range of
motion in neck. Cardio/pulmonary assessment unremarkable. No evidence of extremity injury. Will check head CT. Despite no reported shortness of breath or chest pain�given hypoxia following fall will check chest x-ray. Per patient history�she
did have an updated tetanus vaccine in 2022. Will close laceration. Anticipate discharge.
Laceration thoroughly cleansed with normal saline. Anesthetized with local anesthesia (1% lidocaine with epi). Laceration closed with 3 simple interrupted 5-0 nylon sutures. Skin well-approximated. No active bleeding. Patient tolerated
procedure well. Will advise suture removal in 5 days.
Update: CT head without any acute abnormalities. Chest x-ray without acute abnormalities. Patient was taken off of supplemental oxygen and is oxygenating well at 94. Possible inaccurate pulse ox early secondary to cold temperatures outside.
Patient is perfusing well. Patient stable for discharge home to facility. Return precautions discussed.
Chronic conditions affecting care:
Epilepsy, TBI s/p aneurysm rupture
Acute Exacerbation and/or Progression of Chronic Illness:
N/A
<Gaby Yadav PA-C - Last Filed: 06/19/24 13:25>
*Radiology
Radiology exam reviewed: preliminary read by ED provider and radiology read reviewed
*Pulse Oximetry
Patient hypoxic: yes (90% on room air on arrival - placed on 2L)
Comment: Reassessed patient who is not hypoxic on room air
*EKG
Interpreted by ED Provider?: NA
*Bottle Filler Interpretation
Rate: Bottle Filler- N/A
*Critical Care Note
Total Time (30-74mins, 75-104mins- exclusive of procedures): Not Applicable
Data Reviewed
Review of Other/Old Records Reveals: Records (ED 12/13/2022-Tdap updated)
Source: previous hospital records
ED Attending Note
<Gaby Yadav PA-C - Last Filed: 06/19/24 13:25>
-
Portions of this chart may have been created with voice recognition software.� Occasional wrong word or��sound alike� substitutions may have occurred due to the inherent limitations of voice recognition software.
<Paulie Gutierrez DO - Last Filed: 06/19/24 09:34>
ED Attending Note
Patient seen and examined by attending physician: Yes
I performed the substantive portion of visit, reviewed & personally made and approve the management plan that is documented in note by myself or JULIAN.: Yes
ED Attending Note:
I have seen and evaluated the patient with a [id number] encounter. I have spoken to the advance practicer provider and involved in the medical history, the physical exam, medical decision making.
Evaluation and management service: agree unless noted differently below.
Results interpretation: agree unless noted differently below.
Focused HPI: 58-year-old female presenting with a slip and fall. Due to her prior stroke, she is paralyzed on the right side. Patient states she was transferring herself into the wheelchair and slipped and fell. She does have small laceration to
right eyebrow. Patient denies any complaint
Physical exam: Small laceration to right eyebrow. No acute distress
Medical Decision Making: Given her prior history and injury, will obtain CT head. Although she denies chest pain or shortness of breath or cough, will obtain chest x-ray given very mild hypoxia. This is likely related to poor inspiratory effort
Discharge Plan
Departure
Patient Disposition: Home (Routine Discharge)
Date of Disposition: 06/19/24
Time of Disposition: 10:50
Patient with high blood pressure during this ER visit?: No
Covid-19: Not Applicable
Discharge Problem:
Fall, Laceration of eyebrow, right, Minor head injury
Instructions: Wound Care (DC), Laceration Repair With Stitches (DC)
Prescriptions:
No Action
lamotrigine 150 MG tablet
300 mg PO BID@17
Patient Comments:
[facility] transfer sheet lists meds but not when last administered.
famotidine 20 MG tablet
20 mg PO BID
Patient Comments:
[facility] transfer sheet lists meds but not when last administered.
baclofen 10 MG tablet
5 mg PO BID
Patient Comments:
[facility] transfer sheet lists meds but not when last administered.
aspirin 81 MG tablet,chewable
81 mg PO DAILY
acetaminophen 325 MG tablet
650 mg PO Q4HPRN PRN (Reason: pain or fever > 100.5)
Patient Comments:
[facility] transfer sheet lists meds but not when last administered.
loperamide 2 MG capsule
2 mg PO Q6HPRN PRN (Reason: after each loose stool)
Patient Comments:
[facility] transfer sheet lists meds but not when last administered.
diphenhydramine HCl [Banophen] 25 MG capsule
2 capsules PO HSPRN PRN (Reason: anxiety)
Patient Comments:
12/16/23: Rx states may repeat dose every 2 hours prn for max 3 doses
sennosides [senna] 8.6 mg Tablet
8.6 mg PO HS
cyanocobalamin (vitamin B-12) 1,000 mcg Tablet
1,000 mcg PO DAILY
phenytoin sodium extended 100 mg Capsule
100 mg PO BID
Rx Instructions:
give with phenytoin 50mg
phenytoin 50 mg Tablet,Chewable
50 mg PO BID
Rx Instructions:
give with phenytoin ER 100mg
tramadol 50 mg Tablet
50 mg PO HS
zinc oxide 20 % Ointment
1 applic TOPICAL BID
levothyroxine 25 mcg Tablet
25 mcg PO DAILY@0600
lorazepam 0.5 mg Tablet
0.5 mg PO TID
ascorbic acid (vitamin C) 500 mg Tablet
500 mg PO DAILY
nystatin 100,000 unit/gram Cream
1 applic TOPICAL TID
gabapentin 300 mg Capsule
900 mg PO HS
gabapentin 300 mg Capsule
600 mg PO DAILY
folic acid 1 mg Tablet
1 mg PO DAILY
mirtazapine 15 mg Tablet
15 mg PO HS
ondansetron 4 mg Tablet,Disintegrating
4 mg PO Q4HPRN PRN (Reason: nausea/vomiting)
ziprasidone mesylate 20 mg/mL (final conc.) Recon Soln
20 mg IM [id number] PRN (Reason: agitation)
aripiprazole 15 mg Tablet
7.5 mg PO HS
bacitracin 500 unit/gram Packet
1 applic TOPICAL BID
rosuvastatin 20 mg Tablet
20 mg PO HS
lacosamide 200 mg Tablet
200 mg PO BID
Nayzilam 5 mg/spray (0.1 mL) [place],Non-Aerosol
5 mg INTRANASAL [id number] MDD 10mg PRN (Reason: prolonged seizure)
cefdinir 300 mg capsule
300 mg PO BID Qty: 4 0RF
Referrals:
Fredrick Norman DO [Family Provider] - Follow up in 5-7 days
Activity Restrictions/Additional Instructions:
Return to the emergency department for any severe headache or neck pain, change in mental status, or any signs of infection including fever, chills, significant redness or swelling around wound, pus draining from wound, red streaking away from
wound, worsening current symptoms, or any other concerns
-You came to the emergency department today for evaluation of fall with laceration to right eyebrow. This was closed with 3 sutures. These will need to be removed in 5 days. This can be done at your primary care for emergency department. You
should keep wound clean and dry. Wash gently with soap and water daily. Monitor closely for signs of infection.
-Follow-up with primary care for further evaluation/management and for suture removal
Monitor your symptoms closely and return to the emergency department with any acute worsening/new symptoms or any other concerns
Interventions
Interventions:
*Risk Screen - Suicide Last Done: 06/19/24 09:18
*General Assessment Last Done: 06/19/24 09:18
*Neglect/Abuse Screening Last Done: 06/19/24 09:18
ED- Fall Risk Assessment Last Done: 06/19/24 09:22
*ED COVID-19 Vaccine History Last Done: 06/19/24 09:24
*Nursing Disposition Last Done: 06/19/24 12:49
ED-Musculoskeletal Assessment Last Done: 06/19/24 09:30
ED- Neurological Assessment Last Done: 06/19/24 09:30
ED-Skin Assessment Last Done: 06/19/24 09:26
Discharge Date and Time
Discharge Date/Time: 06/19/24 12:50
Print Language: GIBRALTARIAN
[2024-06-19 11:04] VITALS: BP 117/67
== END 2024-06-19 12:50 | disposition home or self-care (01) ==
LOC: EMR 09:06
PROVIDERS: EMERGENCY PHYSICIAN Student in an Organized Health Care Education/Training Program; FAMILY PHYSICIAN Internal Medicine Geriatric Medicine
DX: S01.111A Laceration without foreign body of right eyelid and periocular area, initial encounter (principal); S09.90XA Unspecified injury of head, initial encounter; W01.0XXA Fall on same level from slipping, tripping and stumbling without subsequent striking against object, initial encounter; Z87.820 Personal history of traumatic brain injury; I25.10 Atherosclerotic heart disease of native coronary artery without angina pectoris; I10 Essential (primary) hypertension; G40.909 Epilepsy, unspecified, not intractable, without status epilepticus; E03.9 Hypothyroidism, unspecified; Z86.79 Personal history of other diseases of the circulatory system
CPT/HCPCS: 99284; 12011; 70450; 71046

== ENCOUNTER 2025-03-12 10:29 | Emergency (ER) | payer MEDICARE, OTHER, SELFPAY ==
[2025-03-12 10:30] VITALS: BP 130/68
[2025-03-12 10:34] VITALS: BMI 18.6
--- NOTE | 2025-03-12 11:40 | ED.GENMED ---
History of Present Illness
General
Chief Complaint: Musculo-Skeletal Complaint
Source: patient
Exam Limitations: none
Time Seen by Provider: 03/12/25 11:15
Nursing documentation reviewed up to this point in time: agreed with
History of Present Illness
History of Present Illness:
59-year-old female with a past medical history of TBI, right hemiparesis, seizures presents to the ER from [facility] where she lives long-term. She presents for evaluation after a fall. Upon my entering the room
patient says 'when can I go home, I do not need to be here.' Apparently she was transitioning out of the wheelchair and fell over onto her right side. She had a minor strike of the right side of her head. She says that she called out for someone
to help her up and at 911 was called for this reason. She says she did not lose consciousness and her head does not hurt her. She has a minor abrasion on the right side of her forehead. She denies any other injuries or complaints. She was noted
to have what appears to be a dislocation of the right shoulder. She says that she has chronic right sided hemiparesis and that she had an injury to her right shoulder in 1984 shortly after onset and was told by orthopedist at that time that there
were no plans to intervene on her shoulder dislocation. She says that it has been dislocated since. She says she has no acute pain in her shoulder or any other acute issues. She denies any rib pain, back pain, neck pain, pain in the lower
extremities. Review of her medication list shows that she is on aspirin but not on any other blood thinners.
Past History
Past History
ED Past Medical History: CAD, HTN, Seizures, Hypothyroidism, Psychiatric and Other (TBI)
ED Past Surgical History: Brain
Social History
Tobacco: Non-smoker
Alcohol: None
Drug: None
Personal: Single
Living: senior living
Family History
Family History: Unable to obtain
Review of Systems
Review of Systems
All Other Systems: ROS reviewed and negative except as documented in HPI and ROS
Respiratory: Denies trouble breathing
Cardiac: Denies chest pain
ABD/GI: Denies abdominal pain, nausea or vomiting
: Denies flank pain
Musculoskeletal: Reports other (Shoulder deformity); Denies neck pain or back pain
Neurological: Denies headache
Phy Exam
Physical Exam
Physical Exam:
General: Awake, alert, oriented x3; nontoxic appearing
Head: Normocephalic, very minor abrasion to the right lateral forehead/orbital rim
Eyes: Conjunctiva normal, pupils equal round and reactive to light bilaterally
Throat: Airway intact, handling secretions
Neck: Trachea midline, no cervical spine tenderness
Back: No signs of trauma the back or flank and no tenderness in the thoracic or lumbar spine
Lungs: Breathing comfortably no distress
Heart: Regular rate and rhythm, no chest wall tenderness
Abd: Soft, non distended, nontender
Neuro: Patient has right sided hemiparesis, dysarthria all of which are at baseline
Skin: Minor facial abrasion as above
Extremities: Patient has apparent inferior dislocation of the right shoulder but no reproducible tenderness, strong right radial pulse, rest of extremities are atraumatic
Scores
Heart Failure Risk
Heart Failure Risk Score: Not Applicable
Heart Score for Chest Pain Patients
STEMI patient?: Not applicable
Withdrawal Assessment of Alcohol
Withdrawal Assessment Completed?: Not applicable
Course
Orders/Labs/Results
Orders:
Orders
03/12/25 10:35
Shoulder, Right 2 Views [CR Shoulder - Right Min 2 View] Urgent
Comment:
Reason For Exam: pain s/p fall
Vital Signs
Initial and Last Documented VS:
Initial Vital Signs
Temp Pulse Resp BP Pulse Ox
36.8 C 76 18 130/68 96
03/12/25 10:30 03/12/25 10:30 03/12/25 10:30 03/12/25 10:30 03/12/25 10:30
Last Documented Vital Signs
Temp Pulse Resp BP Pulse Ox
36.8 C 76 18 130/68 96
03/12/25 10:30 03/12/25 10:30 03/12/25 10:30 03/12/25 10:30 03/12/25 11:42
MDM/Problems Addressed
Differential Diagnosis Includes:
Shoulder dislocation, shoulder fracture
MDM/Problems Addressed:
59-year-old female with history as noted presents for evaluation after fall. She had a minor head trauma but there was no loss of consciousness, has no headache only minor abrasion to the head. She is not on blood thinners. No indication for
emergent head CT and patient does not want emergent head CT�[place] head CT rules support this. She does have injury to the right shoulder but she says that this is not an acute injury. She says that her shoulder has been dislocated since 1984 'I
am fine, this is not new.' She is requesting to be discharged from the hospital, she does not feel she needs to be here. Her x-ray of her shoulder did confirm dislocation but it does appear to be chronic, was present on prior imaging. Provided
her orthopedic referral if she wishes for further assessment of this issue but without any acute issues and patient requesting discharge we will send her back to her living facility.
*Radiology
Radiology exam reviewed: preliminary read by ED provider and radiology read reviewed
*Pulse Oximetry
SaO2: 96
Oxygen Mode of Delivery: Room air
Patient hypoxic: no (96%)
*Critical Care Note
Total Time (30-74mins, 75-104mins- exclusive of procedures): Not Applicable
Data Reviewed
Source: patient and records
Further Testing Considered But Not Given:
Considered CT head
ED Attending Note
-
Portions of this chart may have been created with voice recognition software.� Occasional wrong word or��sound alike� substitutions may have occurred due to the inherent limitations of voice recognition software.
Discharge Plan
Departure
Patient Disposition: Home (Routine Discharge)
Date of Disposition: 03/12/25
Time of Disposition: 11:27
Patient with high blood pressure during this ER visit?: No
Discharge Problem:
Chronic dislocation of right shoulder, Abrasion of forehead
Instructions: Shoulder Dislocation (DC)
Prescriptions:
No Action
lamotrigine 150 MG tablet
300 mg PO BID@
Patient Comments:
[facility] transfer sheet lists meds but not when last administered.
famotidine 20 MG tablet
20 mg PO BID
Patient Comments:
[facility] transfer sheet lists meds but not when last administered.
baclofen 10 MG tablet
5 mg PO BID
Patient Comments:
[facility] transfer sheet lists meds but not when last administered.
aspirin 81 MG tablet,chewable
81 mg PO DAILY
acetaminophen 325 MG tablet
650 mg PO Q4HPRN PRN (Reason: pain or fever > 100.5)
Patient Comments:
[facility] transfer sheet lists meds but not when last administered.
loperamide 2 MG capsule
2 mg PO Q6HPRN PRN (Reason: after each loose stool)
Patient Comments:
[facility] transfer sheet lists meds but not when last administered.
diphenhydramine HCl [Banophen] 25 MG capsule
2 capsules PO HSPRN PRN (Reason: anxiety)
Patient Comments:
12/16/23: Rx states may repeat dose every 2 hours prn for max 3 doses
sennosides [senna] 8.6 mg Tablet
8.6 mg PO HS
cyanocobalamin (vitamin B-12) 1,000 mcg Tablet
1,000 mcg PO DAILY
phenytoin sodium extended 100 mg Capsule
100 mg PO BID
Rx Instructions:
give with phenytoin 50mg
phenytoin 50 mg Tablet,Chewable
50 mg PO BID
Rx Instructions:
give with phenytoin ER 100mg
tramadol 50 mg Tablet
50 mg PO HS
zinc oxide 20 % Ointment
1 applic TOPICAL BID
levothyroxine 25 mcg Tablet
25 mcg PO DAILY@0600
lorazepam 0.5 mg Tablet
0.5 mg PO TID
ascorbic acid (vitamin C) 500 mg Tablet
500 mg PO DAILY
nystatin 100,000 unit/gram Cream
1 applic TOPICAL TID
gabapentin 300 mg Capsule
900 mg PO HS
gabapentin 300 mg Capsule
600 mg PO DAILY
folic acid 1 mg Tablet
1 mg PO DAILY
mirtazapine 15 mg Tablet
15 mg PO HS
ondansetron 4 mg Tablet,Disintegrating
4 mg PO Q4HPRN PRN (Reason: nausea/vomiting)
ziprasidone mesylate 20 mg/mL (final conc.) Recon Soln
20 mg IM [id number] PRN (Reason: agitation)
aripiprazole 15 mg Tablet
7.5 mg PO HS
bacitracin 500 unit/gram Packet
1 applic TOPICAL BID
rosuvastatin 20 mg Tablet
20 mg PO HS
lacosamide 200 mg Tablet
200 mg PO BID
Nayzilam 5 mg/spray (0.1 mL) [place],Non-Aerosol
5 mg INTRANASAL [id number] MDD 10mg PRN (Reason: prolonged seizure)
cefdinir 300 mg capsule
300 mg PO BID Qty: 4 0RF
Referrals:
William Pace MD [Active, Orthopedics] - Call in 1-3 days for appt
Fredrick Norman DO [Family Provider, Internal Medicine] - Follow up in 5-7 days
Activity Restrictions/Additional Instructions:
You are found to have a chronic dislocation of your right shoulder. He said that you are aware of this and it has been this way since 1984. If you wish to be seen by an orthopedist to have this further assessed you should follow-up with number
provided. Otherwise you can follow-up with your primary care doctor.
Interventions
Interventions:
*Risk Screen - Suicide Last Done: 03/12/25 10:34
*General Assessment Last Done: 03/12/25 10:34
*Neglect/Abuse Screening Last Done: 03/12/25 10:34
*ED COVID-19 Vaccine History Last Done: 03/12/25 10:34
*ED Influenza Vaccine History Last Done: 03/12/25 10:34
ED-Musculoskeletal Assessment Last Done: 03/12/25 10:45
Discharge Date and Time
Print Language: YORUBA
== END 2025-03-12 13:08 | disposition home or self-care (01) ==
LOC: EMR 10:29
PROVIDERS: EMERGENCY PHYSICIAN Emergency Medicine; FAMILY PHYSICIAN Internal Medicine Geriatric Medicine
DX: M24.411 Recurrent dislocation, right shoulder (principal); S00.81XA Abrasion of other part of head, initial encounter; W05.0XXA Fall from non-moving wheelchair, initial encounter; I25.10 Atherosclerotic heart disease of native coronary artery without angina pectoris; I10 Essential (primary) hypertension; E03.9 Hypothyroidism, unspecified; Z87.820 Personal history of traumatic brain injury; G81.91 Hemiplegia, unspecified affecting right dominant side
CPT/HCPCS: 99283; 73030

== ENCOUNTER 2025-05-04 11:06 | Emergency (ER) | payer MEDICARE, OTHER, SELFPAY ==
[2025-05-04 11:09] VITALS: BP 115/69
[2025-05-04 11:11] VITALS: BP 115/69
--- NOTE | 2025-05-04 11:19 | ED.GENMED ---
History of Present Illness
General
Chief Complaint: Head Injury
Source: patient
Exam Limitations: none
Time Seen by Provider: 05/04/25 11:14
Nursing documentation reviewed up to this point in time: agreed with
History of Present Illness
History of Present Illness:
Patient is a 59-year-old female with traumatic brain injury. Patient presents awake alert reports she was trying to transfer from her wheelchair and fell and hit the right side of her head. No loss of consciousness. She denies any headache. She
is not on blood thinners. Pt has no complaints .
Past History
Past History
ED Past Medical History: CAD, HTN, Seizures, Hypothyroidism, Psychiatric and Other (TBI)
ED Past Surgical History: Brain
Social History
Tobacco: Non-smoker
Alcohol: None
Drug: None
Personal: Single
Living: half-way
Family History
Family History: Unable to obtain
Phy Exam
General Physical Exam
General Presentation: no apparent distress
General age: appears stated age
General Skin: warm and dry
General Habitus: normal
General Mental: alert
General Hydration: appears well hydrated
Neurological Exam
Neurological Exam: alert
Musculoskeletal Exam
Musculoskeletal Exam: full ROM and other (no obvious palpable hematoma to scalp )
Skin Exam
Skin Exam: normal color and warm/dry
Psychiatric Exam
Psychiatric Exam: normal mood/affect
Course
Orders/Labs/Results
Orders:
Orders
05/04/25 11:21
CT Cervical Spine W/o Iv Contr Urgent
Comment:
Reason For Exam: trauma
CT Head W/o Iv Contrast Urgent
Comment:
Reason For Exam: trauma
Vital Signs
Initial and Last Documented VS:
Initial Vital Signs
Temp Pulse Resp BP Pulse Ox
98.5 F 85 18 115/69 94
05/04/25 11:09 05/04/25 11:09 05/04/25 11:09 05/04/25 11:09 05/04/25 11:09
Last Documented Vital Signs
Temp Pulse Resp BP Pulse Ox
98.5 F 85 18 115/69 94
05/04/25 11:09 05/04/25 11:09 05/04/25 11:09 05/04/25 11:11 05/04/25 11:19
MDM/Problems Addressed
Differential Diagnosis Includes:
Not limited to head injury
MDM/Problems Addressed:
Patient presents awake alert no acute distress able to state that she fell and hit the right side of her head no hematoma on exam she is awake alert vital signs stable CT head and C-spine negative patient is not on blood thinners. Stable for
discharge back to facility
Chronic conditions affecting care:
History of TBI lives at TBI residential facility.
*Radiology
Radiology exam reviewed: radiology read reviewed
*Pulse Oximetry
SaO2: 94
Oxygen Mode of Delivery: Room air
Patient hypoxic: no
*Critical Care Note
Total Time (30-74mins, 75-104mins- exclusive of procedures): Not Applicable
ED Attending Note
-
Portions of this chart may have been created with voice recognition software.� Occasional wrong word or��sound alike� substitutions may have occurred due to the inherent limitations of voice recognition software.
Discharge Plan
Departure
Patient Disposition: Half-Way/SNF
Date of Disposition: 05/04/25
Time of Disposition: 12:24
Patient with high blood pressure during this ER visit?: No
Condition: Fair
Covid-19: Not Applicable
Discharge Problem:
Head injury
Instructions: Head Injury in Adults (DC), Contusion (DC)
Prescriptions:
No Action
lamotrigine 150 MG tablet
300 mg PO BID@,17
Patient Comments:
[facility] transfer sheet lists meds but not when last administered.
famotidine 20 MG tablet
20 mg PO BID
Patient Comments:
[facility] transfer sheet lists meds but not when last administered.
baclofen 10 MG tablet
5 mg PO BID
Patient Comments:
[facility] transfer sheet lists meds but not when last administered.
aspirin 81 MG tablet,chewable
81 mg PO DAILY
acetaminophen 325 MG tablet
650 mg PO Q4HPRN PRN (Reason: pain or fever > 100.5)
Patient Comments:
[facility] transfer sheet lists meds but not when last administered.
loperamide 2 MG capsule
2 mg PO Q6HPRN PRN (Reason: after each loose stool)
Patient Comments:
[facility] transfer sheet lists meds but not when last administered.
diphenhydramine HCl [Banophen] 25 MG capsule
2 capsules PO HSPRN PRN (Reason: anxiety)
Patient Comments:
12/16/23: Rx states may repeat dose every 2 hours prn for max 3 doses
sennosides [senna] 8.6 mg Tablet
8.6 mg PO HS
cyanocobalamin (vitamin B-12) 1,000 mcg Tablet
1,000 mcg PO DAILY
phenytoin sodium extended 100 mg Capsule
100 mg PO BID
Rx Instructions:
give with phenytoin 50mg
phenytoin 50 mg Tablet,Chewable
50 mg PO BID
Rx Instructions:
give with phenytoin ER 100mg
tramadol 50 mg Tablet
50 mg PO HS
zinc oxide 20 % Ointment
1 applic TOPICAL BID
levothyroxine 25 mcg Tablet
25 mcg PO DAILY@0600
lorazepam 0.5 mg Tablet
0.5 mg PO TID
ascorbic acid (vitamin C) 500 mg Tablet
500 mg PO DAILY
nystatin 100,000 unit/gram Cream
1 applic TOPICAL TID
gabapentin 300 mg Capsule
900 mg PO HS
gabapentin 300 mg Capsule
600 mg PO DAILY
folic acid 1 mg Tablet
1 mg PO DAILY
mirtazapine 15 mg Tablet
15 mg PO HS
ondansetron 4 mg Tablet,Disintegrating
4 mg PO Q4HPRN PRN (Reason: nausea/vomiting)
ziprasidone mesylate 20 mg/mL (final conc.) Recon Soln
20 mg IM [id number] PRN (Reason: agitation)
aripiprazole 15 mg Tablet
7.5 mg PO HS
bacitracin 500 unit/gram Packet
1 applic TOPICAL BID
rosuvastatin 20 mg Tablet
20 mg PO HS
lacosamide 200 mg Tablet
200 mg PO BID
Nayzilam 5 mg/spray (0.1 mL) [place],Non-Aerosol
5 mg INTRANASAL [id number] MDD 10mg PRN (Reason: prolonged seizure)
cefdinir 300 mg capsule
300 mg PO BID Qty: 4 0RF
Referrals:
UNKNOWN - PT DOES,NOT KNOW [Family Provider]
Activity Restrictions/Additional Instructions:
Patient had a CAT scan done of head and cervical spine both of which were negative for acute findings. Return if any worsening of symptoms.
Interventions
Interventions:
*Risk Screen - Suicide Last Done: 05/04/25 11:25
*General Assessment Last Done: 05/04/25 11:09
*Neglect/Abuse Screening Last Done: 05/04/25 11:09
*ED- Fall Risk Assessment Last Done: 05/04/25 11:09
*ED COVID-19 Vaccine History Last Done: 05/04/25 11:09
*ED Influenza Vaccine History Last Done: 05/04/25 11:09
ED- Neurological Assessment Last Done: 05/04/25 11:24
ED-Skin Assessment Last Done: 05/04/25 11:24
Discharge Date and Time
Print Language: MEXICAN
[2025-05-04 14:24] VITALS: BP 122/55
== END 2025-05-04 14:28 ==
LOC: EMR 11:06
PROVIDERS: EMERGENCY PHYSICIAN Student in an Organized Health Care Education/Training Program
DX: S09.90XA Unspecified injury of head, initial encounter (principal); I25.10 Atherosclerotic heart disease of native coronary artery without angina pectoris; I10 Essential (primary) hypertension; E03.9 Hypothyroidism, unspecified; Z87.820 Personal history of traumatic brain injury; W05.0XXA Fall from non-moving wheelchair, initial encounter; Y92.199 Unspecified place in other specified residential institution as the place of occurrence of the external cause
CPT/HCPCS: 99284; 70450; 72125